=== PATIENT | male | born 1940 | race Caucasian/White ===

== ENCOUNTER 2016-11-25 06:30 | Inpatient (IN) | payer MEDICARE, OTHER ==
[2016-11-25] MEDS ORDERED: Albuterol/Ipratropium 3.0-0.5 MG/3 ML Neb Soln NEB ONE (06:58)
[2016-11-25] MEDS ORDERED: Sodium Chloride 0.9% 10 ML Syringe FLUSH PRN ×2 (07:19→11:27)
[2016-11-25] MEDS ORDERED: Furosemide 40 MG/4 ML VIAL IVPUSH ONE (07:21)
--- NOTE | 2016-11-25 07:27 | EDM.PDOC ---
ED HISTORY OF PRESENT ILLNESS - General Chief Complaint: Respiratory Problem Stated Complaint: COPD Time Seen by Provider: 11/25/16 07:22 Source: Reports: Patient History Limitations: Reports: No limitations - History of Present Illness INITIAL COMMENTS - FREE TEXT/NARRATIVE: increased sob. Pt has been coughing for about 1 week. He is raising colord bloody sputum. Timing/Duration: Reports: Day(s):, Getting worse, Other (pt uses o2 at home-- 2.5 liters) Severity: moderate Location, General: Reports: chest Associated Symptoms: Reports: cough, loss of appetite, shortness of breath - Related Data Allergies/ADRs: Allergies Allergy/AdvReac Type Severity Reaction Status Date / Time adhesive Allergy Rash Verified 11/25/16 06:39 meperidine HCl [From Demerol] Allergy Hallucinati Verified 11/25/16 06:39 ons Home Meds: Home Meds Aspirin [Adult Low Dose Aspirin EC] 81 mg PO DAILY 04/30/14 [History] Carvedilol [Coreg] 1 tab PO BID 04/30/14 [History] Furosemide [Lasix] 20 mg PO DAILY 04/30/14 [History] Gabapentin [Neurontin] 1 tab PO TID 04/30/14 [History] Gluc/[facility]sm#1/Vit C/James/Bor [Cvs Jfnnclpynio-Oxmekv-SBU] 1 tab PO BID [History] Methadone HCl [Methadone HCl] 3 tab PO TID 04/30/14 [History] Multivitamin [Multi Vitamin Daily] 1 tab PO DAILY 04/30/14 [History] Omeprazole 1 tab PO DAILY 04/30/14 [History] Pyridoxine HCl [Vitamin B-6] 200 mg PO BID 04/30/14 [History] Warfarin [Coumadin] 2 mg PO ASDIRECTED 04/30/14 [History] cloNIDine [cloNIDine] 1 patch TOP ASDIRECTED 04/30/14 [History] Albuterol [Proventil Neb Soln] 11/25/16 [History] Albuterol/Ipratropium [DuoNeb 3.0-0.5 MG/3 ML] 11/25/16 [History] atorvaSTATin [Lipitor] 11/25/16 [History] Past Medical History Cardiovascular History: Reports: Afib, Blood clots/VTE/DVT, High cholesterol, Hypertension, Pacemaker, SOB on exertion Respiratory History: Reports: COPD Gastrointestinal History: Reports: Hiatal hernia Musculoskeletal History: Reports: Back pain, chronic Psychiatric History: Reports: Addiction, Anxiety Endocrine/Metabolic History: Reports: Obesity/BMI 30+ - Past Surgical History Neurological Surgical History: Reports: Lumbar spine Musculoskeletal Surgical History: Reports: Knee replacement Social & Family History - Tobacco Use Smoking Status *Q: Former Smoker Years of Tobacco use: 60 Used Tobacco, but Quit: No Second Hand Smoke Exposure: No - Caffeine Use Caffeine Use: Reports: Soda - Alcohol Use Days Per Week of Alcohol Use: 0 - Recreational Drug Use Recreational Drug Use: No ED ROS GENERAL - Review of Systems Review Of Systems: See Below Constitutional: Reports: fever, chills, malaise, diaphoresis HEENT: Reports: No symptoms Respiratory: Reports: Shortness of Breath, Wheezing, Cough Cardiovascular: Reports: Edema, Other ( increased sob) Endocrine: Reports: no symptoms GI/Abdominal: Reports: No symptoms : Reports: no symptoms Musculoskeletal: Reports: no symptoms Skin: Reports: no symptoms Neurological: Reports: No Symptoms Psychiatric: Reports: No symptoms ED EXAM, GENERAL - Physical Exam Exam: See Below Free Text/Narrative:: pt arrived with increased sob and difficulty resting. He does use o2 at home-- 2.5 liters. He has a fever and purulent looking sputum. Exam Limited By: No limitations General Appearance: alert, anxious Ears: normal TMs Nose: normal inspection Throat/Mouth: Normal inspection Head: atraumatic Neck: normal inspection Respiratory/Chest: decreased breath sounds, wheezing Cardiovascular: regular rate, rhythm GI/Abdominal: soft, non tender (Male) Exam: Deferred Rectal (Males) Exam: Deferred Back Exam: normal inspection Extremities: pedal edema, other ( pluse 3 pitting edema. ) Neurological: alert, oriented, normal cognition Course - Vital Signs Last Recorded V/S: Last Vital Signs Temp 38.2 C H 11/25/16 06:35 Pulse 88 11/25/16 08:36 Resp 17 11/25/16 08:36 BP 148/84 H 11/25/16 08:36 Pulse Ox 92 L 11/25/16 08:36 - Orders/Labs/Meds Orders: Active Orders 24 hr Category Date Time Status EKG Documentation Completion [RC] ASDIRECTED Care 11/25/16 07:29 Active RT Aerosol Therapy [RC] ASDIRECTED Care 11/25/16 06:58 Active Chest 1V Frontal [CR] Stat Exams 11/25/16 06:56 Taken CULTURE BLOOD [BC] Urgent Lab 11/25/16 06:15 Received CULTURE BLOOD [BC] Urgent Lab 11/25/16 07:35 Received CULTURE RESPIRATORY + SMEAR [RM] Stat Lab 11/25/16 08:03 Results Sodium Chloride 0.9% [Saline Flush] Med 11/25/16 07:19 Active 10 ml FLUSH ASDIRECTED PRN Blood Culture x2 Reflex Set [OM.PC] Urgent Oth 11/25/16 07:28 Ordered Saline Lock Insert [OM.PC] Routine Oth 11/25/16 07:19 Ordered EKG 12 Lead [EK] Routine Ther 11/25/16 07:29 Ordered Medication Orders Sodium Chloride (Saline Flush) 10 ml FLUSH ASDIRECTED PRN PRN Reason: Keep Vein Open Last Admin: 11/25/16 07:39 Dose: 10 ml Labs: Laboratory Tests 11/25/16 11/25/16 11/25/16 Range/Units 06:57 06:59 06:59 WBC 8.5 (4.5-11.0) K/uL RBC 3.73 L (4.30-5.90) M/uL Hgb 11.9 L D (12.0-15.0) g/dL Hct 37.2 L (40.0-54.0) % MCV 100 H (80-98) fL MCH 32 H (27-31) pg MCHC 32 (32-36) % Plt Count 150 (150-400) K/uL Neut % (Auto) 84 H (36-66) % Lymph % (Auto) 4 L (24-44) % [place] % (Auto) 12 H (2-6) % Eos % (Auto) 1 L (2-4) % Baso % (Auto) 0 (0-1) % PT (9.5-12.0) sec INR (0.80-1.20) Puncture Site Lt radial ABG pH 7.424 (7.350-7.450) ABG pCO2 43.1 H (35.0-42.0) mmHg ABG pO2 57.4 L (75.0-100.0) mmHg ABG HCO3 27.7 H (22.0-26.0) mmol/L ABG Total CO2 25.0 (23.0-27.0) mmol/L ABG O2 Saturation 89.7 L (95.0-98.0) % ABG O2 Content 14.8 L (15.0-23.0) %vol ABG Base Excess 3.4 mm/L ABG Hemoglobin 12.0 L (13.5-18.0) g/dL ABG Oxyhemoglobin 88.1 % ABG Carboxyhemoglobin 1.2 (0.0-1.6) % ABG Methemoglobin 0.6 % Dagoberto Test Passed O2 Delivery Device Nasal cannula Oxygen Flow Rate 4 L Sodium 141 (140-148) mmol/L Potassium 3.8 (3.6-5.2) mmol/L Chloride 103 (100-108) mmol/L Carbon Dioxide 29 (21-32) mmol/L Anion Gap 9.3 (5.0-14.0) mmol/L BUN 15 (7-18) mg/dL Creatinine 1.2 (0.8-1.3) mg/dL Est Cr Clr Drug Dosing 57.48 mL/min Estimated GFR (MDRD) 59 L (>60) Glucose 184 H (74-106) mg/dL Calcium 8.0 L (8.5-10.1) mg/dL Total Bilirubin 0.9 D (0.2-1.0) mg/dL AST 46 H (15-37) U/L ALT 41 (12-78) U/L Alkaline Phosphatase 60 (46-116) U/L C-Reactive Protein (0.0-0.3) mg/dL Guw-E-Xtfoutygstq Pept (5-450) pg/mL Total Protein 6.5 (6.4-8.2) g/dL Albumin 2.8 L (3.4-5.0) g/dL Globulin 3.7 H (2.3-3.5) g/dL Albumin/Globulin Ratio 0.8 L (1.2-2.2) 11/25/16 11/25/16 11/25/16 Range/Units 06:59 06:59 07:29 WBC (4.5-11.0) K/uL RBC (4.30-5.90) M/uL Hgb (12.0-15.0) g/dL Hct (40.0-54.0) % MCV (80-98) fL MCH (27-31) pg MCHC (32-36) % Plt Count (150-400) K/uL Neut % (Auto) (36-66) % Lymph % (Auto) (24-44) % [place] % (Auto) (2-6) % Eos % (Auto) (2-4) % Baso % (Auto) (0-1) % PT 20.8 H (9.5-12.0) sec INR 1.92 H (0.80-1.20) Puncture Site ABG pH (7.350-7.450) ABG pCO2 (35.0-42.0) mmHg ABG pO2 (75.0-100.0) mmHg ABG HCO3 (22.0-26.0) mmol/L ABG Total CO2 (23.0-27.0) mmol/L ABG O2 Saturation (95.0-98.0) % ABG O2 Content (15.0-23.0) %vol ABG Base Excess mm/L ABG Hemoglobin (13.5-18.0) g/dL ABG Oxyhemoglobin % ABG Carboxyhemoglobin (0.0-1.6) % ABG Methemoglobin % Dagoberto Test O2 Delivery Device Oxygen Flow Rate L Sodium (140-148) mmol/L Potassium (3.6-5.2) mmol/L Chloride (100-108) mmol/L Carbon Dioxide (21-32) mmol/L Anion Gap (5.0-14.0) mmol/L BUN (7-18) mg/dL Creatinine (0.8-1.3) mg/dL Est Cr Clr Drug Dosing mL/min Estimated GFR (MDRD) (>60) Glucose (74-106) mg/dL Calcium (8.5-10.1) mg/dL Total Bilirubin (0.2-1.0) mg/dL AST (15-37) U/L ALT (12-78) U/L Alkaline Phosphatase (46-116) U/L C-Reactive Protein 3.32 H (0.0-0.3) mg/dL Uor-T-Zpfmqibysan Pept 2212 H (5-450) pg/mL Total Protein (6.4-8.2) g/dL Albumin (3.4-5.0) g/dL Globulin (2.3-3.5) g/dL Albumin/Globulin Ratio (1.2-2.2) Meds: Medications Generic Name Dose Route Start Last Admin Trade Name Robert PRN Reason Stop Dose Admin Sodium Chloride 10 ml 11/25/16 07:19 11/25/16 07:39 Saline Flush FLUSH 10 ml ASDIRECTED PRN Administration Keep Vein Open Discontinued Medications Generic Name Dose Route Start Last Admin Trade Name Robert PRN Reason Stop Dose Admin Albuterol/Ipratropium 3 ml 11/25/16 06:58 11/25/16 07:17 Duoneb 3.0-0.5 Mg/3 Ml NEB 11/25/16 06:59 3 ml ONETIME ONE Administration Furosemide 60 mg 11/25/16 07:21 11/25/16 07:39 Lasix IVPUSH 11/25/16 07:22 60 mg ONETIME ONE Administration - Re-Assessments/Exams Free Text/Narrative Re-Assessment/Exam: 11/25/16 09:53 pt arrived with o2 sats in the high 70.s He has been more sob for seversl days. He has a low grade temp. With nebs and he has diuresed 1000 cc. 11/25/16 09:54 [facility] [place] [facility], Departure - Departure Time of Disposition: 09:56 Disposition: Admitted As Inpatient 66 Condition: fair Clinical Impression: Pneumonia, Fluid overload, COPD (chronic obstructive pulmonary disease) Forms: ED Department Discharge Care Plan Goals: admit to Dr haji. - My Orders Last 24 Hours: My Active Orders 11/25/16 06:15 CULTURE BLOOD [BC] Urgent 11/25/16 07:19 Sodium Chloride 0.9% [Saline Flush] 10 ml FLUSH ASDIRECTED PRN Saline Lock Insert [OM.PC] Routine 11/25/16 07:28 Blood Culture x2 Reflex Set [OM.PC] Urgent 11/25/16 07:29 EKG Documentation Completion [RC] ASDIRECTED EKG 12 Lead [EK] Routine 11/25/16 07:35 CULTURE BLOOD [BC] Urgent 11/25/16 08:03 CULTURE RESPIRATORY + SMEAR [RM] Stat - Assessment/Plan Last 24 Hours: My Active Orders 11/25/16 06:15 CULTURE BLOOD [BC] Urgent 11/25/16 07:19 Sodium Chloride 0.9% [Saline Flush] 10 ml FLUSH ASDIRECTED PRN Saline Lock Insert [OM.PC] Routine 11/25/16 07:28 Blood Culture x2 Reflex Set [OM.PC] Urgent 11/25/16 07:29 EKG Documentation Completion [RC] ASDIRECTED EKG 12 Lead [EK] Routine 11/25/16 07:35 CULTURE BLOOD [BC] Urgent 11/25/16 08:03 CULTURE RESPIRATORY + SMEAR [RM] Stat
--- NOTE | 2016-11-25 10:28 | CR ---
Chest 1V Frontal INDICATION: SOB FINDINGS: Comparison 04/30/2014. Patient motion degrades image quality. Left-sided pacemaker in place . Suggestion of a new small infiltrate in the right mid and lower lung, suspicious for pneumonia. Cl inically correlate.
--- NOTE | 2016-11-25 10:47 | PCM.HP ---
H&P History of Present Illness - General Date of Service: 11/25/16 Admit Problem/Dx: Admission Diagnosis/Problem Admission Diagnosis/Problem Pneumonia Source of Information: Patient, Family, Provider, RN notes reviewed History Limitations: Reports: No limitations - History of Present Illness Initial Comments - Free Text/Narative: Mr. Donald is a 76-year-old gentleman who is admitted through the emergency department with hypoxia secondary to COPD exacerbation and right lung pneumonia. He has a known history of cardiac disease and is status post permanent pacemaker placement. Recently had evaluation with the [facility] in [place], apparently based on evaluation they did not feel that he was having significant cardiac dysfunction causing his progressive shortness of breath. He is felt to have COPD but is not completed formal evaluation, and this appointment is pending at the [facility] in December. Over the past years had progressive increasing shortness of breath, he does use oxygen at night but not during the day. Over the past 3 days his had progressive increasing shortness of breath to the point where he becomes very short of breath with minimal exertion. During that period time is also developed a cough productive of colored sputum. He denies any symptoms of chest pain or pressure and has not had significant temperature elevation. White blood cell count is modestly elevated, chest x-ray shows evidence of a right lung infiltrate. rib/ back pain Pain Score (Numeric/FACES): 7 - Related Data Allergies/Adverse Reactions: Allergies Allergy/AdvReac Type Severity Reaction Status Date / Time adhesive Allergy Rash Verified 11/25/16 06:39 meperidine HCl [From Demerol] Allergy Hallucinati Verified 11/25/16 06:39 ons Home Medications: Home Meds Aspirin [Adult Low Dose Aspirin EC] 81 mg PO DAILY 04/30/14 [History] Carvedilol [Coreg] 1 tab PO BID 04/30/14 [History] Furosemide [Lasix] 20 mg PO DAILY 04/30/14 [History] Gabapentin [Neurontin] 1 tab PO TID 04/30/14 [History] Gluc/[facility]sm#1/Vit C/James/Bor [Cvs Jgvhmpvdhau-Bqvyjt-MSK] 1 tab PO BID [History] Methadone HCl [Methadone HCl] 3 tab PO TID 04/30/14 [History] Multivitamin [Multi Vitamin Daily] 1 tab PO DAILY 08/24/14 [History] Omeprazole 1 tab PO DAILY 04/30/14 [History] Pyridoxine HCl [Vitamin B-6] 200 mg PO BID 04/30/14 [History] Warfarin [Coumadin] 2 mg PO ASDIRECTED 04/30/14 [History] cloNIDine [cloNIDine] 1 patch TOP ASDIRECTED 04/30/14 [History] Albuterol [Proventil Neb Soln] 11/25/16 [History] Albuterol/Ipratropium [DuoNeb 3.0-0.5 MG/3 ML] 11/25/16 [History] atorvaSTATin [Lipitor] 11/25/16 [History] Past Medical History Cardiovascular History: Reports: Afib, Blood clots/VTE/DVT, High cholesterol, Hypertension, Pacemaker, SOB on exertion Respiratory History: Reports: COPD Gastrointestinal History: Reports: Hiatal hernia Musculoskeletal History: Reports: Back pain, chronic Psychiatric History: Reports: Addiction, Anxiety Endocrine/Metabolic History: Reports: Obesity/BMI 30+ - Past Surgical History Neurological Surgical History: Reports: Lumbar spine Musculoskeletal Surgical History: Reports: Knee replacement Social & Family History - Tobacco Use Smoking Status *Q: Former Smoker Years of Tobacco use: 60 Used Tobacco, but Quit: No Second Hand Smoke Exposure: No - Caffeine Use Caffeine Use: Reports: Soda - Alcohol Use Days Per Week of Alcohol Use: 0 - Recreational Drug Use Recreational Drug Use: No H&P Review of Systems - Review of Systems: Review Of Systems: See Below General: Reports: weakness. Denies: fever, chills HEENT: Reports: headaches (Temporal). Denies: dysphasia, sinus congestion, sore throat, visual changes Pulmonary: Reports: Shortness of Breath, Wheezing, Cough, Sputum. Denies: Pleuritic Chest Pain, Hemoptysis Cardiovascular: Reports: dyspnea on exertion, edema. Denies: chest pain, palpitations, orthopnea, PND, lightheadedness, syncope Gastrointestinal: Reports: Abdominal pain. Denies: Anorexia, Constipation, Diarrhea, Decreased appetite, Difficulty swallowing, Nausea, Vomiting Genitourinary: Reports: no symptoms Musculoskeletal: Reports: back pain Skin: Reports: no symptoms Psychiatric: Reports: no symptoms Neurological: Reports: No Symptoms Hematologic/Lymphatic: Reports: no symptoms Immunologic: Reports: no symptoms Exam - Exam Exam: See Below - Vital Signs Vital Signs: Last Vital Signs Temp 100.8 F H 11/25/16 06:35 Pulse 88 11/25/16 08:36 Resp 17 11/25/16 08:36 BP 148/84 H 11/25/16 08:36 Pulse Ox 92 L 11/25/16 08:36 Weight: 270 lb - Exam Quality Assessment: supplemental oxygen, DVT prophylaxis General: alert, oriented, cooperative, mild distress HEENT: Conjunctiva clear, Hearing intact, Mucosa moist & pink, Nares patent, Normal nasal septum, Posterior pharynx clear, Pupils equal, Pupils reactive Neck: supple, trachea midline, +2 carotid pulse wo bruit Lungs: Decreased breath sounds, Rhonchi, Wheezing. No: Crackles, Rales, Rub, Stridor Cardiovascular: regular rate, regular rhythm, normal S1, normal S2. No: irregular rhythm, bradycardia, tachycardia, systolic murmur, diastolic murmur Abdomen: normal bowel sounds, soft, tenderness, other (Ventral hernia). No: organomegaly, peritoneal signs, distention, guarding, rigidity, rebound Back Exam: decreased range of motion, vertebral tenderness Extremities: 3, normal inspection, 10 Skin: warm, dry, intact Neurological: cranial nerves intact, strength equal bilateral, normal speech, normal tone, sensation intact. No: focal deficit Neuro Extensive - Mental Status: alert, oriented x3, normal mood/affect, normal cognition, memory intact - Patient Data Lab Results last 24 hrs: Laboratory Results - last 24 hr 11/25/16 11/25/16 11/25/16 Range/Units 06:57 06:59 06:59 WBC 8.5 (4.5-11.0) K/uL RBC 3.73 L (4.30-5.90) M/uL Hgb 11.9 L D (12.0-15.0) g/dL Hct 37.2 L (40.0-54.0) % MCV 100 H (80-98) fL MCH 32 H (27-31) pg MCHC 32 (32-36) % Plt Count 150 (150-400) K/uL Neut % (Auto) 84 H (36-66) % Lymph % (Auto) 4 L (24-44) % [place] % (Auto) 12 H (2-6) % Eos % (Auto) 1 L (2-4) % Baso % (Auto) 0 (0-1) % PT (9.5-12.0) sec INR (0.80-1.20) Puncture Site Lt radial ABG pH 7.424 (7.350-7.450) ABG pCO2 43.1 H (35.0-42.0) mmHg ABG pO2 57.4 L (75.0-100.0) mmHg ABG HCO3 27.7 H (22.0-26.0) mmol/L ABG Total CO2 25.0 (23.0-27.0) mmol/L ABG O2 Saturation 89.7 L (95.0-98.0) % ABG O2 Content 14.8 L (15.0-23.0) %vol ABG Base Excess 3.4 mm/L ABG Hemoglobin 12.0 L (13.5-18.0) g/dL ABG Oxyhemoglobin 88.1 % ABG Carboxyhemoglobin 1.2 (0.0-1.6) % ABG Methemoglobin 0.6 % Dagoberto Test Passed O2 Delivery Device Nasal cannula Oxygen Flow Rate 4 L Sodium 141 (140-148) mmol/L Potassium 3.8 (3.6-5.2) mmol/L Chloride 103 (100-108) mmol/L Carbon Dioxide 29 (21-32) mmol/L Anion Gap 9.3 (5.0-14.0) mmol/L BUN 15 (7-18) mg/dL Creatinine 1.2 (0.8-1.3) mg/dL Est Cr Clr Drug Dosing 57.48 mL/min Estimated GFR (MDRD) 59 L (>60) Glucose 184 H (74-106) mg/dL Calcium 8.0 L (8.5-10.1) mg/dL Total Bilirubin 0.9 D (0.2-1.0) mg/dL AST 46 H (15-37) U/L ALT 41 (12-78) U/L Alkaline Phosphatase 60 (46-116) U/L C-Reactive Protein (0.0-0.3) mg/dL [id number] Pept (5-450) pg/mL Total Protein 6.5 (6.4-8.2) g/dL Albumin 2.8 L (3.4-5.0) g/dL Globulin 3.7 H (2.3-3.5) g/dL Albumin/Globulin Ratio 0.8 L (1.2-2.2) 11/25/16 11/25/16 11/25/16 Range/Units 06:59 06:59 07:29 WBC (4.5-11.0) K/uL RBC (4.30-5.90) M/uL Hgb (12.0-15.0) g/dL Hct (40.0-54.0) % MCV (80-98) fL MCH (27-31) pg MCHC (32-36) % Plt Count (150-400) K/uL Neut % (Auto) (36-66) % Lymph % (Auto) (24-44) % [place] % (Auto) (2-6) % Eos % (Auto) (2-4) % Baso % (Auto) (0-1) % PT 20.8 H (9.5-12.0) sec INR 1.92 H (0.80-1.20) Puncture Site ABG pH (7.350-7.450) ABG pCO2 (35.0-42.0) mmHg ABG pO2 (75.0-100.0) mmHg ABG HCO3 (22.0-26.0) mmol/L ABG Total CO2 (23.0-27.0) mmol/L ABG O2 Saturation (95.0-98.0) % ABG O2 Content (15.0-23.0) %vol ABG Base Excess mm/L ABG Hemoglobin (13.5-18.0) g/dL ABG Oxyhemoglobin % ABG Carboxyhemoglobin (0.0-1.6) % ABG Methemoglobin % Dagoberto Test O2 Delivery Device Oxygen Flow Rate L Sodium (140-148) mmol/L Potassium (3.6-5.2) mmol/L Chloride (100-108) mmol/L Carbon Dioxide (21-32) mmol/L Anion Gap (5.0-14.0) mmol/L BUN (7-18) mg/dL Creatinine (0.8-1.3) mg/dL Est Cr Clr Drug Dosing mL/min Estimated GFR (MDRD) (>60) Glucose (74-106) mg/dL Calcium (8.5-10.1) mg/dL Total Bilirubin (0.2-1.0) mg/dL AST (15-37) U/L ALT (12-78) U/L Alkaline Phosphatase (46-116) U/L C-Reactive Protein 3.32 H (0.0-0.3) mg/dL Foq-[id number]-Pdlncgddvko Pept 2212 H (5-450) pg/mL Total Protein (6.4-8.2) g/dL Albumin (3.4-5.0) g/dL Globulin (2.3-3.5) g/dL Albumin/Globulin Ratio (1.2-2.2) Result Diagrams: 11/25/16 06:59 11/25/16 06:59 Cory Results last 24 hrs: Microbiology 11/25/16 08:03 Gram Stain - Final Sputum - Expectorated *Q Meaningful Use (ADM) - VTE *Q VTE Criteria *Q: VTE Pharmacological Contraindications *Q: High INR Value - VTE Risk Assess *Q Each Risk Factor Represents 1 Point: Swollen Legs, Current, Obesity (BMI greater than 30), Abnormal Pulmonary Function (COPD) Total Score 1 Point Risk Factors: 3 Each Risk Factor Represents 2 Points: None Total Score 2 Point Risk Factors: 0 Each Risk Factor Represents 3 Points: Age 75 Years or Greater Total Score 3 Point Risk Factors: 3 Each Risk Factor Represents 5 Points: None Total Score 5 Point Risk Factors: 0 Venous Thromboembolism Risk Factor Score *Q: 6 - Stroke *Q Stroke Criteria *Q: - AMI *Q AMI Criteria *Q: Problem List Initiated/Reviewed/Updated: Yes Orders Last 24hrs: Active Orders 24 hr Category Date Time Status Patient Status Manage Transfer [TRANSFER] Routine ADT 11/25/16 10:29 Active EKG Documentation Completion [RC] ASDIRECTED Care 11/25/16 07:29 Active RT Aerosol Therapy [RC] ASDIRECTED Care 11/25/16 06:58 Active CULTURE BLOOD [BC] Urgent Lab 11/25/16 06:15 Received CULTURE BLOOD [BC] Urgent Lab 11/25/16 07:35 Received CULTURE RESPIRATORY + SMEAR [RM] Stat Lab 11/25/16 08:03 Results Azithromycin [Zithromax] 500 mg Med 11/25/16 10:45 Ordered Sodium Chloride 0.9% [Normal Saline] 250 ml IV Q24H Sodium Chloride 0.9% [Saline Flush] Med 11/25/16 07:19 Active 10 ml FLUSH ASDIRECTED PRN cefTRIAXone [Rocephin] 1 gm Med 11/25/16 10:45 Ordered Sodium Chloride 0.9% [Normal Saline] 50 ml IV Q24H methylPREDNISolone Sod Succ [Solu-MEDROL] Med 11/25/16 10:45 Ordered 40 mg IVPUSH Q6H Blood Culture x2 Reflex Set [OM.PC] Urgent Oth 11/25/16 07:28 Ordered Saline Lock Insert [OM.PC] Routine Oth 11/25/16 07:19 Ordered Resuscitation Status Routine Resus Stat 11/25/16 10:34 Ordered EKG 12 Lead [EK] Routine Ther 11/25/16 07:29 Ordered Medication Orders Azithromycin 500 mg/ Sodium (Chloride) 250 mls @ 250 mls/hr IV Q24H KAVITA Ceftriaxone Sodium 1 gm/ (Sodium Chloride) 50 mls @ 100 mls/hr IV Q24H KAVITA Methylprednisolone Sodium Succinate (Solu-Medrol) 40 mg IVPUSH Q6H KAVITA Sodium Chloride (Saline Flush) 10 ml FLUSH ASDIRECTED PRN PRN Reason: Keep Vein Open Last Admin: 11/25/16 07:39 Dose: 10 ml Assessment/Plan Comment:: ASSESSMENT AND PLAN RIGHT LUNG PNEUMONIA-community acquired, no recent history of steroid use or antibiotics. -Blood and sputum cultures pending -IV Rocephin and azithromycin pending culture results COPD EXACERBATION-he's not had formally documented diagnosis of COPD but by history and recent evaluation this is very highly likely. -Supplemental oxygen as needed -Nebulizer therapy with albuterol and duo nebs -Solu-Medrol 40 mg IV every 6 hours ACUTE ON CHRONIC HYPOXIC RESPIRATORY FAILURE-his required increased supplemental oxygen and has documented hypoxia on initial evaluation. -Management of pneumonia and COPD exacerbation as above TEMPORAL HEADACHES-reports a recent history of severe bilateral temporal headaches, denies any visual changes -Sedimentation rate to evaluate for temporal arteritis -Consider surgical consult for temporal artery biopsy EPIGASTRIC ABDOMINAL PAIN-he developed severe right upper quadrant and epigastric pain following eating. Symptoms include bloating and nausea. Differential includes possible ulcer disease or cysts gastritis duodenitis versus cholecystitis. -Protonix 40 mg by mouth twice a day -When stable from a respiratory status consider further evaluation including EGD and right upper quadrant ultrasound CHRONIC KIDNEY DISEASE STAGE III -Closely monitor urine output and renal function during hospital stay MAINTENANCE ISSUES -DVT prophylaxis; current therapy with warfarin should provide adequate DVT prophylaxis -GI prophylaxis; Protonix as above -Keith catheter; not indicated -Nutrition; 2 g sodium diet -Nicotine dependence; not required CODE STATUS-FULL CODE ADMISSION STATUS-patient will be admitted to inpatient status, expect at least a 2 night hospital stay for evaluation and management of problems as outlined above. At the time of this admission I do not reasonably expected evaluation and management of this problem will require more than a 96 hour hospital stay. DISPOSITION-anticipate discharge to home after the hospital stay. PRIMARY CARE PROVIDER-Dr. Navarro
[2016-11-25] MEDS ORDERED: Acetaminophen 325 MG Tab PO ONE (11:21)
[2016-11-25] MEDS ORDERED: Albuterol 0.083% 2.5 MG/3 ML Neb Soln NEB PRN (11:27)
[2016-11-25] MEDS ORDERED: Polyethylene Glycol 3350 Powder 17 GM Packet PO PRN (11:27)
[2016-11-25] MEDS ORDERED: Magnesium Hydroxide 400 MG/5 ML Susp 30 ML Cup PO PRN (11:27)
[2016-11-25] MEDS ORDERED: Ondansetron 4 MG/2 ML SDV IV PRN (11:27)
[2016-11-25] MEDS: Gabapentin 100 MG Cap PO SCH ×2 (13:28→20:25)
[2016-11-25] MEDS: Methadone 10 MG Tab PO SCH ×2 (13:32→20:25)
[2016-11-25] MEDS: methylPREDNISolone Sodium Succinate 40 MG/1 ML SDV IVPUSH SCH ×3 (13:33→23:03)
[2016-11-25] MEDS: cefTRIAXone 1 GM in Sodium Chloride 0.9% 50 ML IV SCH (13:34)
[2016-11-25] MEDS: [UNRECOGNIZED DRUG - REMARK] TOP SCH (14:14)
[2016-11-25] MEDS: Albuterol/Ipratropium 3.0-0.5 MG/3 ML Neb Soln NEB SCH ×2 (14:39→20:25)
[2016-11-25] MEDS: Azithromycin 500 MG in Sodium Chloride 0.9% 250 ML IV SCH (14:43)
[2016-11-25] MEDS: Warfarin 3 MG Tab PO SCH (14:44)
[2016-11-25] MEDS: Docusate Sodium 100 MG Cap PO PRN (15:09)
[2016-11-25] MEDS: Acetaminophen 325 MG Tab PO PRN (15:30)
[2016-11-25] MEDS: Pantoprazole 40 MG Tab.CR PO SCH (16:31)
[2016-11-25] MEDS: Vitamin B6-pyridOXINE 50 MG Tab PO SCH (20:25)
[2016-11-25] MEDS: Carvedilol 25 MG Tab PO SCH (20:25)
[2016-11-25] MEDS: Mineral Oil/White Petrolatum Crm 113 GM Jar TOP SCH (20:29)
[2016-11-25] MEDS: [UNRECOGNIZED DRUG - OTHER] PO SCH (20:34)
[2016-11-26] MEDS: methylPREDNISolone Sodium Succinate 40 MG/1 ML SDV IVPUSH SCH ×4 (05:22→23:47)
[2016-11-26] MEDS: Albuterol/Ipratropium 3.0-0.5 MG/3 ML Neb Soln NEB SCH ×4 (07:07→21:17)
[2016-11-26] MEDS: Mineral Oil/White Petrolatum Crm 113 GM Jar TOP SCH (07:40)
[2016-11-26] MEDS: Pantoprazole 40 MG Tab.CR PO SCH ×2 (07:48→16:07)
[2016-11-26] MEDS ORDERED: Furosemide 40 MG/4 ML VIAL IVPUSH ONE (08:00)
[2016-11-26] MEDS: Docusate Sodium 100 MG Cap PO PRN (08:01)
[2016-11-26] MEDS: Methadone 10 MG Tab PO SCH ×3 (08:01→21:17)
[2016-11-26] MEDS: Gabapentin 100 MG Cap PO SCH ×3 (08:01→21:18)
[2016-11-26] MEDS: Polyethylene Glycol 3350 Powder 17 GM Packet PO SCH (08:01)
[2016-11-26] MEDS: Carvedilol 25 MG Tab PO SCH ×2 (08:03→21:20)
[2016-11-26] MEDS: atorvaSTATin 20 MG Tab PO SCH (08:03)
[2016-11-26] MEDS: Aspirin 81 MG Tab.EC PO SCH (08:03)
[2016-11-26] MEDS: [UNRECOGNIZED DRUG - OTHER] PO SCH ×2 (08:06→21:18)
[2016-11-26] MEDS: Fluticasone Propionate Nasal Spray 16 GM Bottle NASBOTH SCH (08:06)
[2016-11-26] MEDS: Vitamin B6-pyridOXINE 50 MG Tab PO SCH ×2 (08:06→21:18)
[2016-11-26] MEDS ORDERED: cloNIDine 0.1 MG/Day Transdermal Patch TOP SCH (09:00)
[2016-11-26] MEDS ORDERED: Non-Formulary Medication 1 Each (Atorvastatin [Lipitor] 40 MG) PO SCH (09:00)
--- NOTE | 2016-11-26 09:07 | PCM.PN ---
- General Info Date of Service: 11/26/16 Functional Status: Reports: pain controlled, tolerating diet, urinating - Review of Systems General: Reports: Weakness. Denies: Fever, Chills Pulmonary: Reports: shortness of breath, cough, wheezing. Denies: pleuritic chest pain, sputum, hemoptysis Cardiovascular: Reports: Dyspnea on Exertion. Denies: Chest Pain, Palpitations , Orthopnea, PND, Edema Gastrointestinal: Reports: No symptoms Systems Review Comment:: This patient has done relatively well since admission, bilateral temporal headache is improved and his sedimentation rate was normal. Breathing seems to be somewhat better although he still notes shortness of breath with activity and exertion. Vital signs have been stable and he has remained afebrile. - Patient Data Vitals - most recent: Last Vital Signs Temp 97.3 F 11/26/16 07:00 Pulse 76 11/26/16 08:03 Resp 22 H 11/26/16 07:00 BP 167/95 H 11/26/16 08:03 Pulse Ox 96 11/26/16 07:00 Weight - most recent: 264 lb 14.4 oz I&O - last 24 hours: Intake & Output 11/25/16 11/26/16 11/26/16 22:59 06:59 14:59 Output Total 150 325 200 Balance -150 -325 -200 Lab Results last 24 hrs: Laboratory Results - last 24 hr 11/26/16 11/26/16 11/26/16 Range/Units 05:57 05:57 05:57 WBC 10.6 (4.5-11.0) K/uL RBC 4.10 L (4.30-5.90) M/uL Hgb 13.1 (12.0-15.0) g/dL Hct 39.8 L (40.0-54.0) % MCV 97 (80-98) fL MCH 32 H (27-31) pg MCHC 33 (32-36) % Plt Count 150 (150-400) K/uL Neut % (Auto) 92 H (36-66) % Lymph % (Auto) 5 L (24-44) % [place] % (Auto) 3 (2-6) % Eos % (Auto) 0 L (2-4) % Baso % (Auto) 0 (0-1) % PT 29.0 H (9.5-12.0) sec INR 2.65 H (0.80-1.20) Sodium 142 (140-148) mmol/L Potassium 4.3 (3.6-5.2) mmol/L Chloride 103 (100-108) mmol/L Carbon Dioxide 33 H (21-32) mmol/L Anion Gap 10.3 (5.0-14.0) mmol/L BUN 16 (7-18) mg/dL Creatinine 1.0 (0.8-1.3) mg/dL Est Cr Clr Drug Dosing 68.98 mL/min Estimated GFR (MDRD) > 60 (>60) Glucose 149 H (74-106) mg/dL Calcium 8.4 L (8.5-10.1) mg/dL Magnesium 1.8 (1.8-2.4) mg/dL Med Orders - Current: Current Medications Acetaminophen (Tylenol) 650 mg PO Q4H PRN PRN Reason: Pain (Mild 1-3)/fever Last Admin: 11/25/16 15:30 Dose: 650 mg Albuterol (Proventil Neb Soln) 2.5 mg NEB Q4H PRN PRN Reason: Shortness Of Breath/wheezing Albuterol/Ipratropium (Duoneb 3.0-0.5 Mg/3 Ml) 3 ml NEB QIDRT [facility] Last Admin: 11/26/16 07:07 Dose: 3 ml Aspirin (Halfprin) 81 mg PO DAILY [facility] Last Admin: 11/26/16 08:03 Dose: 81 mg Atorvastatin Calcium (Lipitor) 40 mg PO DAILY [facility] Last Admin: 11/26/16 08:03 Dose: 40 mg Carvedilol (Coreg) 25 mg PO BID [facility] Last Admin: 11/26/16 08:03 Dose: 25 mg Clonidine HCl (Catapres-Tts 1) 0.1 mg TOP Q7D [facility] Last Admin: 11/26/16 08:02 Dose: 0.1 mg Docusate Sodium (Colace) 100 mg PO BID PRN PRN Reason: Constipation Last Admin: 11/26/16 08:01 Dose: 100 mg Fluticasone Propionate (Flonase) 0 gm NASBOTH DAILY [facility] Last Admin: 11/26/16 08:06 Dose: Not Given Gabapentin (Neurontin) 100 mg PO TID [facility] Last Admin: 11/26/16 08:01 Dose: 100 mg Azithromycin 500 mg/ Sodium (Chloride) 250 mls @ 250 mls/hr IV Q24H [facility] Last Admin: 11/25/16 14:43 Dose: 250 mls/hr Ceftriaxone Sodium 1 gm/ (Sodium Chloride) 50 mls @ 100 mls/hr IV Q24H [facility] Last Admin: 11/25/16 13:34 Dose: 100 mls/hr Magnesium Hydroxide (Milk Of Magnesia) 30 ml PO Q12H PRN PRN Reason: Constipation Methadone HCl (Methadone) 30 mg PO TID [facility] Last Admin: 11/26/16 08:01 Dose: 30 mg Methylprednisolone Sodium Succinate (Solu-Medrol) 40 mg IVPUSH Q6H [facility] Last Admin: 11/26/16 05:22 Dose: 40 mg Mineral Oil/White Petrolatum (Hydrocerin Crm) 0 gm TOP ASDIRECTED [facility] Last Admin: 11/26/16 07:40 Dose: 1 applic (Gluc/[facility]-Msm#1/Vit C/James/Bor [[facility] Glucosamine-Chondr- Ms 1 tab PO BID [facility] Last Admin: 11/26/16 08:06 Dose: Not Given Verify Clonidine (Patch) 0 each TOP DAILY [facility] Last Admin: 11/25/16 14:14 Dose: 1 each Ondansetron HCl (Zofran) 4 mg IV Q4H PRN PRN Reason: Nausea/Vomiting Pantoprazole Sodium (Protonix) 40 mg PO BIDAC [facility] Last Admin: 11/26/16 07:48 Dose: 40 mg Polyethylene Glycol (Miralax) 17 gm PO DAILY PRN PRN Reason: Constipation Last Admin: 11/25/16 15:09 Dose: 17 gm Polyethylene Glycol (Miralax) 17 gm PO DAILY [facility] Last Admin: 11/26/16 08:01 Dose: 17 gm Pyridoxine HCl (Vitamin B6-Pyridoxine) 200 mg PO BID [facility] Last Admin: 11/26/16 08:06 Dose: Not Given Sodium Chloride (Saline Flush) 10 ml FLUSH ASDIRECTED PRN PRN Reason: Keep Vein Open Warfarin Sodium (Coumadin) 3 mg PO DAILY@1300 [facility] Last Admin: 11/25/16 14:44 Dose: 3 mg Discontinued Medications Acetaminophen (Tylenol) 650 mg PO NOW ONE Stop: 11/25/16 11:22 Last Admin: 11/25/16 13:27 Dose: 650 mg Albuterol/Ipratropium (Duoneb 3.0-0.5 Mg/3 Ml) 3 ml NEB ONETIME ONE Stop: 11/25/16 06:59 Last Admin: 11/25/16 07:17 Dose: 3 ml Furosemide (Lasix) 60 mg IVPUSH ONETIME ONE Stop: 11/25/16 07:22 Last Admin: 11/25/16 07:39 Dose: 60 mg Furosemide (Lasix) 40 mg IVPUSH NOW ONE Stop: 11/26/16 08:01 Last Admin: 11/26/16 07:50 Dose: 40 mg Sodium Chloride (Saline Flush) 10 ml FLUSH ASDIRECTED PRN PRN Reason: Keep Vein Open Last Admin: 11/25/16 07:39 Dose: 10 ml - Exam Quality Assessment: supplemental oxygen, DVT prophylaxis General: alert, oriented, cooperative, mild distress Lungs: Decreased breath sounds, Rhonchi, Wheezing. No: Crackles, Rales, Rub, Stridor Cardiovascular: Regular Rate, Regular Rhythm, No Murmurs Abdomen: bowel sounds present, soft, no tenderness, no distension Extremities: no edema Skin: warm, dry, intact - Problem List Review Problem List Initiated/Reviewed/Updated: Yes - My Orders Last 24 Hours: My Active Orders 11/25/16 10:34 Resuscitation Status Routine 11/25/16 11:00 cefTRIAXone [Rocephin] 1 gm Sodium Chloride 0.9% [Normal Saline] 50 ml IV Q24H methylPREDNISolone Sod Succ [Solu-MEDROL] 40 mg IVPUSH Q6H 11/25/16 11:27 Patient Status [ADT] Routine Intake and Output [RC] QSHIFT Notify Provider Vital Signs [RC] ASDIRECTED Oxygen Therapy [RC] Q12H RT Aerosol Therapy [RC] ASDIRECTED Up With Assistance [RC] ASDIRECTED VTE/DVT Education [RC] Per Unit Routine Vital Signs [RC] Q4H Acetaminophen [Tylenol] 650 mg PO Q4H PRN Albuterol [Proventil Neb Soln] 2.5 mg NEB Q4H PRN Docusate Sodium [Colace] 100 mg PO BID PRN Magnesium Hydroxide [Milk of Magnesia] 30 ml PO Q12H PRN Ondansetron [Zofran] 4 mg IV Q4H PRN Polyethylene Glycol 3350 [MiraLAX] 17 gm PO DAILY PRN Sodium Chloride 0.9% [Saline Flush] 10 ml FLUSH ASDIRECTED PRN Saline Lock Insert [OM.PC] Routine VTE Pharmacological Contraindications [AST] Per Unit Routine 11/25/16 12:00 Azithromycin [Zithromax] 500 mg Sodium Chloride 0.9% [Normal Saline] 250 ml IV Q24H 11/25/16 14:00 Non-Formulary Medication [NF Drug] 0 each TOP DAILY 11/25/16 15:00 Albuterol/Ipratropium [DuoNeb 3.0-0.5 MG/3 ML] 3 ml NEB QIDRT 11/25/16 16:30 Pantoprazole [Protonix] 40 mg PO BIDAC 11/25/16 17:00 Mineral Oil/Petrolatum,White [Hydrocerin Crm] 0 gm TOP ASDIRECTED 11/25/16 Lunch 2 Gram Sodium Diet [DIET] 11/26/16 09:00 Fluticasone Propionate [Flonase] 0 gm NASBOTH DAILY Polyethylene Glycol 3350 [MiraLAX] 17 gm PO DAILY atorvaSTATin [Lipitor] 40 mg PO DAILY 11/27/16 05:00 BASIC METABOLIC PANEL,BMP [CHEM] Timed CBC WITH AUTO DIFF [HEME] Timed INR,PT,PROTHROMBIN TIME [COAG] Timed MAGNESIUM [CHEM] Timed 11/27/16 08:00 Furosemide [Lasix] 40 mg IVPUSH NOW ONE - Plan Plan:: ASSESSMENT AND PLAN RIGHT LUNG PNEUMONIA-community acquired, no recent history of steroid use or antibiotics. -Blood and sputum cultures pending -IV Rocephin and azithromycin pending culture results COPD EXACERBATION-he's not had formally documented diagnosis of COPD but by history and recent evaluation this is very highly likely. Shortness of breath is improved with current management. -Supplemental oxygen as needed -Nebulizer therapy with albuterol and duo nebs -Solu-Medrol 40 mg IV every 6 hours ACUTE ON CHRONIC HYPOXIC RESPIRATORY FAILURE-his required increased supplemental oxygen and has documented hypoxia on initial evaluation. -Management of pneumonia and COPD exacerbation as above TEMPORAL HEADACHES-headaches improved, no temporal tenderness to palpation, sedimentation rate was normal EPIGASTRIC ABDOMINAL PAIN-he developed severe right upper quadrant and epigastric pain following eating. Symptoms include bloating and nausea. Differential includes possible ulcer disease or cysts gastritis duodenitis versus cholecystitis. -Protonix 40 mg by mouth twice a day -When stable from a respiratory status consider further evaluation including EGD and right upper quadrant ultrasound CHRONIC KIDNEY DISEASE STAGE III -Closely monitor urine output and renal function during hospital stay MAINTENANCE ISSUES -DVT prophylaxis; current therapy with warfarin should provide adequate DVT prophylaxis -GI prophylaxis; Protonix as above -Keith catheter; not indicated -Nutrition; 2 g sodium diet -Nicotine dependence; not required CODE STATUS-FULL CODE ADMISSION STATUS-patient will be admitted to inpatient status, expect at least a 2 night hospital stay for evaluation and management of problems as outlined above. At the time of this admission I do not reasonably expected evaluation and management of this problem will require more than a 96 hour hospital stay. DISPOSITION-anticipate discharge to home after the hospital stay. PRIMARY CARE PROVIDER-Dr. Navarro
[2016-11-26] MEDS: cefTRIAXone 1 GM in Sodium Chloride 0.9% 50 ML IV SCH (11:13)
[2016-11-26] MEDS: [UNRECOGNIZED DRUG - REMARK] TOP SCH (11:14)
[2016-11-26] MEDS: Azithromycin 500 MG in Sodium Chloride 0.9% 250 ML IV SCH (12:16)
[2016-11-26] MEDS: Warfarin 3 MG Tab PO SCH (12:42)
[2016-11-26] MEDS: Acetaminophen 325 MG Tab PO PRN (15:06)
[2016-11-27] MEDS: methylPREDNISolone Sodium Succinate 40 MG/1 ML SDV IVPUSH SCH ×3 (05:53→23:09)
[2016-11-27] MEDS: Albuterol/Ipratropium 3.0-0.5 MG/3 ML Neb Soln NEB SCH ×4 (07:47→21:26)
[2016-11-27] MEDS ORDERED: Furosemide 40 MG/4 ML VIAL IVPUSH ONE (08:00)
[2016-11-27] MEDS: Pantoprazole 40 MG Tab.CR PO SCH ×2 (08:19→17:55)
[2016-11-27] MEDS: Carvedilol 25 MG Tab PO SCH ×2 (08:20→21:20)
[2016-11-27] MEDS: Fluticasone Propionate Nasal Spray 16 GM Bottle NASBOTH SCH (08:21)
[2016-11-27] MEDS: [UNRECOGNIZED DRUG - OTHER] PO SCH ×2 (08:22→21:24)
[2016-11-27] MEDS: Gabapentin 100 MG Cap PO SCH ×3 (08:24→21:19)
[2016-11-27] MEDS: atorvaSTATin 20 MG Tab PO SCH (08:24)
[2016-11-27] MEDS: Polyethylene Glycol 3350 Powder 17 GM Packet PO SCH (08:24)
[2016-11-27] MEDS: Vitamin B6-pyridOXINE 50 MG Tab PO SCH ×2 (08:25→21:19)
[2016-11-27] MEDS: Methadone 10 MG Tab PO SCH ×3 (08:29→21:26)
[2016-11-27] MEDS: [UNRECOGNIZED DRUG - REMARK] TOP SCH (08:42)
[2016-11-27] MEDS ORDERED: Potassium Chloride 20 MEQ Tab.ER PO ONE (09:00)
[2016-11-27] MEDS: cefTRIAXone 1 GM in Sodium Chloride 0.9% 50 ML IV SCH (11:20)
[2016-11-27] MEDS: Aspirin 81 MG Tab.EC PO SCH (11:22)
[2016-11-27] MEDS: Azithromycin 500 MG in Sodium Chloride 0.9% 250 ML IV SCH (13:39)
[2016-11-27] MEDS ORDERED: Pneumococcal Polyvalent-23 Vaccine 0.5 ML SDV IM ONE (14:00)
--- NOTE | 2016-11-27 14:55 | PCM.PN ---
- General Info Date of Service: 11/27/16 Functional Status: Reports: tolerating diet, urinating - Review of Systems General: Reports: Weakness. Denies: Fever, Chills Pulmonary: Reports: shortness of breath, cough, sputum, wheezing. Denies: pleuritic chest pain, hemoptysis Cardiovascular: Reports: Dyspnea on Exertion. Denies: Chest Pain, Palpitations , Orthopnea, PND, Edema Gastrointestinal: Reports: Abdominal pain, Nausea. Denies: Constipation, Decreased appetite, Diarrhea, Difficulty swallowing, Vomiting Systems Review Comment:: This patient has been stable over the past 24 hours, respiratory status has improved modestly. Vital signs have been stable and he has remained afebrile. Continues to experience symptoms of some nausea and bloating following eating. - Patient Data Vitals - most recent: Last Vital Signs Temp 97.3 F 11/27/16 11:00 Pulse 77 11/27/16 11:00 Resp 18 11/27/16 11:00 BP 143/86 H 11/27/16 11:00 Pulse Ox 95 11/27/16 11:00 Weight - most recent: 264 lb 14.413 oz I&O - last 24 hours: Intake & Output 11/26/16 11/27/16 11/27/16 22:59 06:59 14:59 Intake Total 300 360 Output Total 119 193 3234 Balance -100 -200 -640 Lab Results last 24 hrs: Laboratory Results - last 24 hr 11/27/16 11/27/16 11/27/16 Range/Units 05:00 05:00 05:00 WBC 16.5 H (4.5-11.0) K/uL RBC 4.00 L (4.30-5.90) M/uL Hgb 13.2 (12.0-15.0) g/dL Hct 38.8 L (40.0-54.0) % MCV 97 (80-98) fL MCH 33 H (27-31) pg MCHC 34 (32-36) % Plt Count 174 (150-400) K/uL Neut % (Auto) 92 H (36-66) % Lymph % (Auto) 4 L (24-44) % [place] % (Auto) 5 (2-6) % Eos % (Auto) 0 L (2-4) % Baso % (Auto) 0 (0-1) % PT 44.1 H (9.5-12.0) sec INR 3.99 H (0.80-1.20) Sodium 144 (140-148) mmol/L Potassium 3.4 L (3.6-5.2) mmol/L Chloride 104 (100-108) mmol/L Carbon Dioxide 33 H (21-32) mmol/L Anion Gap 10.4 (5.0-14.0) mmol/L BUN 24 H (7-18) mg/dL Creatinine 1.0 (0.8-1.3) mg/dL Est Cr Clr Drug Dosing 69.07 mL/min Estimated GFR (MDRD) > 60 (>60) Glucose 133 H (74-106) mg/dL Calcium 8.1 L (8.5-10.1) mg/dL Magnesium 1.8 (1.8-2.4) mg/dL Med Orders - Current: Current Medications Acetaminophen (Tylenol) 650 mg PO Q4H PRN PRN Reason: Pain (Mild 1-3)/fever Last Admin: 11/26/16 15:06 Dose: 650 mg Albuterol (Proventil Neb Soln) 2.5 mg NEB Q4H PRN PRN Reason: Shortness Of Breath/wheezing Albuterol/Ipratropium (Duoneb 3.0-0.5 Mg/3 Ml) 3 ml NEB QIDRT [facility] Last Admin: 11/27/16 10:42 Dose: 3 ml Aspirin (Halfprin) 81 mg PO DAILY [facility] Last Admin: 11/27/16 11:22 Dose: 81 mg Atorvastatin Calcium (Lipitor) 40 mg PO DAILY [facility] Last Admin: 11/27/16 08:24 Dose: 40 mg Carvedilol (Coreg) 25 mg PO BID [facility] Last Admin: 11/27/16 08:20 Dose: 25 mg Clonidine HCl (Catapres-Tts 1) 0.1 mg TOP Q7D [facility] Last Admin: 11/26/16 08:02 Dose: 0.1 mg Docusate Sodium (Colace) 100 mg PO BID PRN PRN Reason: Constipation Last Admin: 11/26/16 08:01 Dose: 100 mg Fluticasone Propionate (Flonase) 0 gm NASBOTH DAILY [facility] Last Admin: 11/27/16 08:21 Dose: 2 sprays Gabapentin (Neurontin) 100 mg PO TID [facility] Last Admin: 03/23/17 13:40 Dose: 100 mg Azithromycin 500 mg/ Sodium (Chloride) 250 mls @ 250 mls/hr IV Q24H [facility] Last Admin: 11/27/16 13:39 Dose: 250 mls/hr Ceftriaxone Sodium 1 gm/ (Sodium Chloride) 50 mls @ 100 mls/hr IV Q24H [facility] Last Admin: 11/27/16 11:20 Dose: 100 mls/hr Magnesium Hydroxide (Milk Of Magnesia) 30 ml PO Q12H PRN PRN Reason: Constipation Methadone HCl (Methadone) 30 mg PO TID [facility] Last Admin: 11/27/16 13:39 Dose: 30 mg Methylprednisolone Sodium Succinate (Solu-Medrol) 40 mg IVPUSH Q12H [facility] Mineral Oil/White Petrolatum (Hydrocerin Crm) 0 gm TOP ASDIRECTED [facility] Last Admin: 11/26/16 07:40 Dose: 1 applic (Gluc/[facility]sm#1/Vit C/James/Bor [[facility] Glucosamine-Chondr- Ms 1 tab PO BID [facility] Last Admin: 11/27/16 08:22 Dose: Not Given Verify Clonidine (Patch) 0 each TOP DAILY [facility] Last Admin: 11/27/16 08:42 Dose: Not Given Ondansetron HCl (Zofran) 4 mg IV Q4H PRN PRN Reason: Nausea/Vomiting Pantoprazole Sodium (Protonix) 40 mg PO BIDAC [facility] Last Admin: 11/27/16 08:19 Dose: 40 mg Polyethylene Glycol (Miralax) 17 gm PO DAILY PRN PRN Reason: Constipation Last Admin: 11/25/16 15:09 Dose: 17 gm Polyethylene Glycol (Miralax) 17 gm PO DAILY [facility] Last Admin: 11/27/16 08:24 Dose: 17 gm Pyridoxine HCl (Vitamin B6-Pyridoxine) 200 mg PO BID [facility] Last Admin: 11/27/16 08:25 Dose: Not Given Senna/Docusate Sodium (Senna Plus) 2 tab PO BID [facility] Last Admin: 11/27/16 08:25 Dose: 2 tab Sodium Chloride (Saline Flush) 10 ml FLUSH ASDIRECTED PRN PRN Reason: Keep Vein Open Discontinued Medications Acetaminophen (Tylenol) 650 mg PO NOW ONE Stop: 11/25/16 11:22 Last Admin: 11/25/16 13:27 Dose: 650 mg Albuterol/Ipratropium (Duoneb 3.0-0.5 Mg/3 Ml) 3 ml NEB ONETIME ONE Stop: 11/25/16 06:59 Last Admin: 11/25/16 07:17 Dose: 3 ml Furosemide (Lasix) 60 mg IVPUSH ONETIME ONE Stop: 11/25/16 07:22 Last Admin: 11/25/16 07:39 Dose: 60 mg Furosemide (Lasix) 40 mg IVPUSH NOW ONE Stop: 11/26/16 08:01 Last Admin: 11/26/16 07:50 Dose: 40 mg Furosemide (Lasix) 40 mg IVPUSH ONETIME ONE Stop: 11/27/16 08:01 Last Admin: 11/27/16 08:19 Dose: 40 mg Methylprednisolone Sodium Succinate (Solu-Medrol) 40 mg IVPUSH Q6H [facility] Last Admin: 11/27/16 11:21 Dose: 40 mg Pneumococcal Polyvalent Vaccine (Pneumovax 23) 0.5 ml IM .ONCE ONE Stop: 11/27/16 14:01 Potassium Chloride (Klor-Con M20) 40 meq PO ONETIME ONE Stop: 11/27/16 09:01 Last Admin: 11/27/16 08:29 Dose: 40 meq Sodium Chloride (Saline Flush) 10 ml FLUSH ASDIRECTED PRN PRN Reason: Keep Vein Open Last Admin: 11/25/16 07:39 Dose: 10 ml Warfarin Sodium (Coumadin) 3 mg PO DAILY@1300 [facility] Last Admin: 11/26/16 12:42 Dose: 3 mg - Exam Quality Assessment: supplemental oxygen, DVT prophylaxis General: alert, oriented, cooperative, mild distress Lungs: Decreased breath sounds, Rhonchi, Wheezing. No: Crackles, Rales, Rub, Stridor Cardiovascular: Regular Rate, Regular Rhythm, No Murmurs Abdomen: bowel sounds present, soft, no distension, tenderness. No: rigidity, rebound, guarding Extremities: no edema Skin: warm, dry, intact - Problem List Review Problem List Initiated/Reviewed/Updated: Yes - My Orders Last 24 Hours: My Active Orders 11/27/16 14:30 methylPREDNISolone Sod Succ [Solu-MEDROL] 40 mg IVPUSH Q12H 11/28/16 05:00 BASIC METABOLIC PANEL,BMP [CHEM] Timed CBC WITH AUTO DIFF [HEME] Timed INR,PT,PROTHROMBIN TIME [COAG] Timed MAGNESIUM [CHEM] Timed - Plan Plan:: ASSESSMENT AND PLAN RIGHT LUNG PNEUMONIA-community acquired, no recent history of steroid use or antibiotics. Modest improvement of symptoms since admission. -Blood and sputum cultures pending -IV Rocephin and azithromycin pending culture results COPD EXACERBATION-he's not had formally documented diagnosis of COPD but by history and recent evaluation this is very highly likely. Shortness of breath is improved with current management. -Supplemental oxygen as needed -Nebulizer therapy with albuterol and duo nebs -Solu-Medrol 40 mg IV every 12 hours ACUTE ON CHRONIC HYPOXIC RESPIRATORY FAILURE-his required increased supplemental oxygen and has documented hypoxia on initial evaluation. Shortness of breath has improved since admission, continues to require supplemental oxygen. -Management of pneumonia and COPD exacerbation as above TEMPORAL HEADACHES-headaches resolved, sedimentation rate within normal range EPIGASTRIC ABDOMINAL PAIN-he developed severe right upper quadrant and epigastric pain following eating. Symptoms include bloating and nausea. Differential includes possible ulcer disease or cysts gastritis duodenitis versus cholecystitis. -Protonix 40 mg by mouth twice a day -When stable from a respiratory status consider further evaluation including EGD and right upper quadrant ultrasound CHRONIC KIDNEY DISEASE STAGE III -Closely monitor urine output and renal function during hospital stay MAINTENANCE ISSUES -DVT prophylaxis; current therapy with warfarin should provide adequate DVT prophylaxis -GI prophylaxis; Protonix as above -Keith catheter; not indicated -Nutrition; 2 g sodium diet -Nicotine dependence; not required CODE STATUS-FULL CODE ADMISSION STATUS-patient will be admitted to inpatient status, expect at least a 2 night hospital stay for evaluation and management of problems as outlined above. At the time of this admission I do not reasonably expected evaluation and management of this problem will require more than a 96 hour hospital stay. DISPOSITION-anticipate discharge to home after the hospital stay. PRIMARY CARE PROVIDER-Dr. Navarro
[2016-11-28] MEDS ORDERED: Metoprolol Tartrate 25 MG Tab PO ONE (04:35)
[2016-11-28] MEDS: Albuterol/Ipratropium 3.0-0.5 MG/3 ML Neb Soln NEB SCH ×4 (07:08→20:51)
--- NOTE | 2016-11-28 07:19 | PCM.SN ---
- Free Text/Narrative Note: time 04:35 call [address] [place] [address] Nursing; elevated blood pressure; 164/110, p 82 denies chest pain, shortness of breath, pain level at base line, patient is awake and walking in room a; elevated blood pressure p; order Metoprolol 25 mg po now. monitor vital signs closely. continue with present plan of care.
[2016-11-28] MEDS: Carvedilol 25 MG Tab PO SCH ×3 (07:33→20:46)
[2016-11-28] MEDS: Pantoprazole 40 MG Tab.CR PO SCH ×2 (07:34→16:35)
[2016-11-28] MEDS: Fluticasone Propionate Nasal Spray 16 GM Bottle NASBOTH SCH (08:52)
[2016-11-28] MEDS: [UNRECOGNIZED DRUG - OTHER] PO SCH ×2 (08:53→20:48)
[2016-11-28] MEDS: Aspirin 81 MG Tab.EC PO SCH (08:54)
[2016-11-28] MEDS: atorvaSTATin 20 MG Tab PO SCH (08:54)
[2016-11-28] MEDS: Magnesium Sulfate/Water 2 GM in Premix Bag 1 BAG IV SCH ×2 (08:55→18:42)
[2016-11-28] MEDS: Gabapentin 100 MG Cap PO SCH ×3 (08:56→20:48)
[2016-11-28] MEDS: Polyethylene Glycol 3350 Powder 17 GM Packet PO SCH (08:59)
[2016-11-28] MEDS: [UNRECOGNIZED DRUG - REMARK] TOP SCH (08:59)
[2016-11-28] MEDS ORDERED: Potassium Chloride 20 MEQ Tab.ER PO ONE (09:00)
[2016-11-28] MEDS: Vitamin B6-pyridOXINE 50 MG Tab PO SCH (09:01)
[2016-11-28] MEDS: Methadone 10 MG Tab PO SCH ×3 (09:05→20:51)
[2016-11-28] MEDS: cefTRIAXone 1 GM in Sodium Chloride 0.9% 50 ML IV SCH (11:30)
--- NOTE | 2016-11-28 11:48 | PCM.PN ---
- General Info Date of Service: 11/28/16 Functional Status: Reports: pain controlled, ambulating, urinating - Review of Systems General: Reports: Weakness. Denies: Fever, Chills Pulmonary: Reports: shortness of breath, wheezing. Denies: pleuritic chest pain , cough, sputum, hemoptysis Cardiovascular: Reports: Dyspnea on Exertion. Denies: Chest Pain, Palpitations , Orthopnea, PND, Edema, Lightheadedness Gastrointestinal: Reports: Abdominal pain, Nausea. Denies: Constipation, Diarrhea, Difficulty swallowing, Vomiting Systems Review Comment:: This patient has experienced further improvement in his shortness of breath, presently is fairly close to his baseline. Vital signs have been stable and he has remained afebrile. Continues to experience abdominal discomfort and bloating with nausea, following eating. - Patient Data Vitals - most recent: Last Vital Signs Temp 97.6 F 11/28/16 11:02 Pulse 97 11/28/16 11:02 Resp 16 11/28/16 11:02 BP 147/97 H 11/28/16 11:02 Pulse Ox 95 11/28/16 11:02 Weight - most recent: 264 lb 14.413 oz I&O - last 24 hours: Intake & Output 11/27/16 11/28/16 11/28/16 22:59 06:59 14:59 Intake Total 300 640 Output Total 550 525 Balance -250 -525 640 Lab Results last 24 hrs: Laboratory Results - last 24 hr 11/28/16 11/28/16 11/28/16 Range/Units 05:45 05:45 05:45 WBC 14.7 H (4.5-11.0) K/uL RBC 4.07 L (4.30-5.90) M/uL Hgb 13.0 (12.0-15.0) g/dL Hct 39.6 L (40.0-54.0) % MCV 97 (80-98) fL MCH 32 H (27-31) pg MCHC 33 (32-36) % Plt Count 192 (150-400) K/uL Neut % (Auto) 92 H (36-66) % Lymph % (Auto) 4 L (24-44) % [place] % (Auto) 4 (2-6) % Eos % (Auto) 0 L (2-4) % Baso % (Auto) 0 (0-1) % PT 38.3 H (9.5-12.0) sec INR 3.48 H (0.80-1.20) Sodium 146 (140-148) mmol/L Potassium 3.3 L (3.6-5.2) mmol/L Chloride 105 (100-108) mmol/L Carbon Dioxide 34 H (21-32) mmol/L Anion Gap 10.3 (5.0-14.0) mmol/L BUN 24 H (7-18) mg/dL Creatinine 1.2 (0.8-1.3) mg/dL Est Cr Clr Drug Dosing 57.56 mL/min Estimated GFR (MDRD) 59 L (>60) Glucose 137 H (74-106) mg/dL Calcium 8.1 L (8.5-10.1) mg/dL Magnesium 1.7 L (1.8-2.4) mg/dL Med Orders - Current: Current Medications Acetaminophen (Tylenol) 650 mg PO Q4H PRN PRN Reason: Pain (Mild 1-3)/fever Last Admin: 11/26/16 15:06 Dose: 650 mg Albuterol (Proventil Neb Soln) 2.5 mg NEB Q4H PRN PRN Reason: Shortness Of Breath/wheezing Albuterol/Ipratropium (Duoneb 3.0-0.5 Mg/3 Ml) 3 ml NEB QIDRT [facility] Last Admin: 11/28/16 10:45 Dose: 3 ml Aspirin (Halfprin) 81 mg PO DAILY [facility] Last Admin: 11/28/16 08:54 Dose: 81 mg Atorvastatin Calcium (Lipitor) 40 mg PO DAILY [facility] Last Admin: 11/28/16 08:54 Dose: 40 mg Carvedilol (Coreg) 25 mg PO BID [facility] Last Admin: 11/28/16 08:23 Dose: Not Given Clonidine HCl (Catapres-Tts 1) 0.1 mg TOP Q7D [facility] Last Admin: 11/26/16 08:02 Dose: 0.1 mg Docusate Sodium (Colace) 100 mg PO BID PRN PRN Reason: Constipation Last Admin: 11/26/16 08:01 Dose: 100 mg Fluticasone Propionate (Flonase) 0 gm NASBOTH DAILY [facility] Last Admin: 11/28/16 08:52 Dose: 2 sprays Gabapentin (Neurontin) 100 mg PO TID [facility] Last Admin: 11/28/16 08:56 Dose: 100 mg Azithromycin 500 mg/ Sodium (Chloride) 250 mls @ 250 mls/hr IV Q24H [facility] Last Admin: 11/27/16 13:39 Dose: 250 mls/hr Ceftriaxone Sodium 1 gm/ (Sodium Chloride) 50 mls @ 100 mls/hr IV Q24H [facility] Last Admin: 11/28/16 11:30 Dose: 100 mls/hr Magnesium Sulfate 2 gm/ Premix 50 mls @ 25 mls/hr IV Q6H [facility] Stop: 11/28/16 16:59 Last Admin: 11/28/16 08:55 Dose: 25 mls/hr Potassium Chloride 20 meq/Lidocaine HCl 2 ml/ Sodium Chloride 112 mls @ 56 mls/ hr IV Q2H [facility] Stop: 11/28/16 14:59 Magnesium Hydroxide (Milk Of Magnesia) 30 ml PO Q12H PRN PRN Reason: Constipation Methadone HCl (Methadone) 30 mg PO TID [facility] Last Admin: 11/28/16 09:05 Dose: 30 mg Methylprednisolone Sodium Succinate (Solu-Medrol) 40 mg IVPUSH Q12H [facility] Last Admin: 11/27/16 23:09 Dose: 40 mg Mineral Oil/White Petrolatum (Hydrocerin Crm) 0 gm TOP ASDIRECTED [facility] Last Admin: 11/26/16 07:40 Dose: 1 applic (Gluc/[facility]-Msm#1/Vit C/James/Bor [[facility] Glucosamine-Chondr- Ms 1 tab PO BID [facility] Last Admin: 11/28/16 08:53 Dose: Not Given Verify Clonidine (Patch) 0 each TOP DAILY [facility] Last Admin: 11/28/16 08:59 Dose: Not Given Ondansetron HCl (Zofran) 4 mg IV Q4H PRN PRN Reason: Nausea/Vomiting Pantoprazole Sodium (Protonix) 40 mg PO BIDAC [facility] Last Admin: 11/28/16 07:34 Dose: 40 mg Polyethylene Glycol (Miralax) 17 gm PO DAILY PRN PRN Reason: Constipation Last Admin: 11/25/16 15:09 Dose: 17 gm Polyethylene Glycol (Miralax) 17 gm PO DAILY [facility] Last Admin: 11/28/16 08:59 Dose: 17 gm Pyridoxine HCl (Vitamin B6-Pyridoxine) 200 mg PO BID [facility] Last Admin: 11/28/16 09:01 Dose: 200 mg Senna/Docusate Sodium (Senna Plus) 2 tab PO BID [facility] Last Admin: 11/28/16 08:57 Dose: 2 tab Sodium Chloride (Saline Flush) 10 ml FLUSH ASDIRECTED PRN PRN Reason: Keep Vein Open Discontinued Medications Acetaminophen (Tylenol) 650 mg PO NOW ONE Stop: 11/25/16 11:22 Last Admin: 11/25/16 13:27 Dose: 650 mg Albuterol/Ipratropium (Duoneb 3.0-0.5 Mg/3 Ml) 3 ml NEB ONETIME ONE Stop: 11/25/16 06:59 Last Admin: 11/25/16 07:17 Dose: 3 ml Furosemide (Lasix) 60 mg IVPUSH ONETIME ONE Stop: 11/25/16 07:22 Last Admin: 11/25/16 07:39 Dose: 60 mg Furosemide (Lasix) 40 mg IVPUSH NOW ONE Stop: 11/26/16 08:01 Last Admin: 11/26/16 07:50 Dose: 40 mg Furosemide (Lasix) 40 mg IVPUSH ONETIME ONE Stop: 11/27/16 08:01 Last Admin: 11/27/16 08:19 Dose: 40 mg Methylprednisolone Sodium Succinate (Solu-Medrol) 40 mg IVPUSH Q6H [facility] Last Admin: 11/27/16 11:21 Dose: 40 mg Metoprolol Tartrate (Lopressor) 25 mg PO ONETIME ONE Stop: 11/28/16 04:36 Last Admin: 11/28/16 04:48 Dose: 25 mg Pneumococcal Polyvalent Vaccine (Pneumovax 23) 0.5 ml IM .ONCE ONE Stop: 11/27/16 14:01 Potassium Chloride (Klor-Con M20) 40 meq PO ONETIME ONE Stop: 11/27/16 09:01 Last Admin: 11/27/16 08:29 Dose: 40 meq Potassium Chloride (Klor-Con M20) 40 meq PO ONETIME ONE Stop: 11/28/16 09:01 Last Admin: 11/28/16 08:53 Dose: 40 meq Sodium Chloride (Saline Flush) 10 ml FLUSH ASDIRECTED PRN PRN Reason: Keep Vein Open Last Admin: 03/21/17 07:39 Dose: 10 ml Warfarin Sodium (Coumadin) 3 mg PO DAILY@1300 KAVITA Last Admin: 11/26/16 12:42 Dose: 3 mg - Exam Quality Assessment: supplemental oxygen, DVT prophylaxis General: alert, oriented, cooperative, mild distress Lungs: Clear to auscultation, Normal respiratory effort, Decreased breath sounds Cardiovascular: Regular Rate, No Murmurs, Irregular Rhythm. No: Bradycardia, Tachycardia Abdomen: bowel sounds present, soft, no distension, tenderness. No: rigidity, rebound, guarding Extremities: no edema Skin: warm, dry, intact - Problem List Review Problem List Initiated/Reviewed/Updated: Yes - My Orders Last 24 Hours: My Active Orders 11/27/16 23:00 methylPREDNISolone Sod Succ [Solu-MEDROL] 40 mg IVPUSH Q12H 11/28/16 09:00 Magnesium Sulfate/Water [Magnesium Sulfate 2 GM in Water 50 ML] 2 gm Premix Bag 1 bag IV Q6H 11/28/16 11:00 Potassium Chloride 20 meq Lidocaine 1% [Xylocaine 1%] 2 ml Sodium Chloride 0.9 % [Normal Saline] 100 ml IV Q2H 11/28/16 11:42 Abdomen Ltd [US] Urgent 11/29/16 05:00 BASIC METABOLIC PANEL,BMP [CHEM] Timed CBC WITH AUTO DIFF [HEME] Timed INR,PT,PROTHROMBIN TIME [COAG] Timed MAGNESIUM [CHEM] Timed - Plan Plan:: ASSESSMENT AND PLAN RIGHT LUNG PNEUMONIA-community acquired, no recent history of steroid use or antibiotics. Further improvement over the past 24 hours -Blood and sputum cultures negative thus far -IV Rocephin and azithromycin pending culture results COPD EXACERBATION-he's not had formally documented diagnosis of COPD but by history and recent evaluation this is very highly likely. Shortness of breath is improved with current management. -Supplemental oxygen as needed -Nebulizer therapy with albuterol and duo nebs -Prednisone 40 mg by mouth daily ACUTE ON CHRONIC HYPOXIC RESPIRATORY FAILURE-his required increased supplemental oxygen and has documented hypoxia on initial evaluation. Shortness of breath has improved since admission, continues to require supplemental oxygen. -Management of pneumonia and COPD exacerbation as above -Check oxygen saturations at rest and with activity did determine if he'll require continuous supplemental oxygen at home TEMPORAL HEADACHES-headaches resolved, sedimentation rate within normal range EPIGASTRIC ABDOMINAL PAIN-he developed severe right upper quadrant and epigastric pain following eating. Symptoms include bloating and nausea. Symptoms have not really improved with use of proton pump inhibitor therapy. -Protonix 40 mg by mouth twice a day -Abdominal ultrasound to evaluate for gallbladder disease CHRONIC KIDNEY DISEASE STAGE III -Closely monitor urine output and renal function during hospital stay MAINTENANCE ISSUES -DVT prophylaxis; current therapy with warfarin should provide adequate DVT prophylaxis -GI prophylaxis; Protonix as above -Keith catheter; not indicated -Nutrition; 2 g sodium diet -Nicotine dependence; not required CODE STATUS-FULL CODE ADMISSION STATUS-patient will be admitted to inpatient status, expect at least a 2 night hospital stay for evaluation and management of problems as outlined above. At the time of this admission I do not reasonably expected evaluation and management of this problem will require more than a 96 hour hospital stay. DISPOSITION-anticipate discharge to home after the hospital stay. PRIMARY CARE PROVIDER-Dr. Navarro
[2016-11-28] MEDS: Potassium Chloride 20 MEQ, Lidocaine 1% 2 ML in Sodium Chloride 0.9% 100 ML IV SCH ×2 (12:51→16:35)
[2016-11-28] MEDS: predniSONE 20 MG Tab PO SCH (12:52)
--- NOTE | 2016-11-28 15:02 | US ---
Ultrasound abdomen Limited. Findings: Pancreas is not well-seen.. Shadowing about the liver limits details. No gross evidence fo r liver mass. No gallbladder wall thickening. Negative sonographic Ram sign. No stones. Common bi le duct 6 mm. Right kidney 11.4 cm. No hydronephrosis right kidney. No definitive evidence for ascit es fluid. Impression: 1. Gallbladder within normal limits. 2. Limitations of the liver without gross evidence for mass.
[2016-11-28] MEDS: Azithromycin 500 MG in Sodium Chloride 0.9% 250 ML IV SCH (15:18)
[2016-11-28] MEDS: methylPREDNISolone Sodium Succinate 40 MG/1 ML SDV IVPUSH SCH (15:23)
[2016-11-29] MEDS: Vitamin B6-pyridOXINE 50 MG Tab PO SCH ×3 (05:58→08:29)
[2016-11-29] MEDS: Albuterol/Ipratropium 3.0-0.5 MG/3 ML Neb Soln NEB SCH ×2 (07:55→11:06)
[2016-11-29] MEDS: Methadone 10 MG Tab PO SCH (08:15)
[2016-11-29] MEDS: Pantoprazole 40 MG Tab.CR PO SCH (08:16)
[2016-11-29] MEDS: Carvedilol 25 MG Tab PO SCH (08:17)
[2016-11-29] MEDS: Aspirin 81 MG Tab.EC PO SCH (08:17)
[2016-11-29] MEDS: Polyethylene Glycol 3350 Powder 17 GM Packet PO SCH (08:17)
[2016-11-29] MEDS: [UNRECOGNIZED DRUG - OTHER] PO SCH (08:18)
[2016-11-29] MEDS: Fluticasone Propionate Nasal Spray 16 GM Bottle NASBOTH SCH (08:18)
[2016-11-29] MEDS: atorvaSTATin 20 MG Tab PO SCH (08:18)
[2016-11-29] MEDS: predniSONE 20 MG Tab PO SCH (08:19)
[2016-11-29] MEDS: [UNRECOGNIZED DRUG - REMARK] TOP SCH (08:20)
[2016-11-29] MEDS: Gabapentin 100 MG Cap PO SCH (08:21)
[2016-11-29 10:53] VITALS: BP 127/85
[2016-11-29] MEDS ORDERED: Pneumococcal Polyvalent-23 Vaccine 0.5 ML SDV IM ONE (11:30)
--- NOTE | 2016-11-29 13:50 | PCM.DCSUM1 ---
Discharge Summary - Hospital Course Brief History: This patient is a 76-year-old gentleman with a known history of COPD who was admitted with hypoxia secondary to COPD exacerbation and right lung pneumonia. - Discharge Data Discharge Date: 11/29/16 Discharge Disposition: Home, Self-Care 01 Condition: Fair - Discharge Diagnosis/Problem(s) (1) Hypoxia SNOMED Code(s): 075096170, 947138677 ICD Code: R09.02 - HYPOXEMIA Status: Acute Current Visit: Yes (2) Pneumonia SNOMED Code(s): 162601223 ICD Code: J18.9 - PNEUMONIA, UNSPECIFIED ORGANISM Status: Acute Current Visit: Yes (3) COLD, Chronic obstructive lung disease SNOMED Code(s): 83308479 ICD Code: J44.9 - CHRONIC OBSTRUCTIVE PULMONARY DISEASE, UNSPECIFIED Status : Chronic Current Visit: No (4) CKD (chronic kidney disease) stage 3, GFR 30-59 ml/min SNOMED Code(s): 672789425 ICD Code: N18.3 - CHRONIC KIDNEY DISEASE, STAGE 3 (MODERATE) Status: Acute Current Visit: Yes - Patient Summary/Data Hospital Course: This patient is a 76-year-old gentleman who was admitted through the emergency department because of increased shortness of breath and cough. On initial assessment was found to be hypoxic and required an increase in supplemental oxygen to maintain adequate saturations. White blood cell count was found to be normal, chest x-ray showed evidence of a right lung infiltrate consistent with pneumonia. Blood and sputum cultures were obtained at the time of admission but remain negative throughout his hospital stay. On admission he was given IV fluids for hydration, nebulizer therapy, supplemental oxygen, IV antibiotics for community-acquired pneumonia, and IV Solu-Medrol. With these interventions he experienced improvement in his respiratory status and was almost back to baseline by the time of discharge. On admission reported a recent history of severe bilateral temporal headaches. He had no tenderness to palpation over the temporal arteries and denied any visual changes or jaw claudication. Sedimentation rate was obtained and found to be within normal range making the diagnosis of temporal arteritis very unlikely. He also reported ongoing difficulty with upper abdominal plain and bloating following eating. He was noted to have a ventral hernia which he's had for some time. During his hospital stay ultrasound was obtained and showed no evidence of underlying gallbladder disease. He noted marked improvement in his symptoms after had a bowel movement and was felt that ongoing and intermittent difficulty with constipation most likely explanation for his symptoms. Prior to discharge assessment was made of this oxygen saturations, on the 24 at rest he had an oxygen saturation of 87%. He will be discharged to home with continuous home oxygen. Activity will be as tolerated and he will resume his usual diet. Followup appointment will be scheduled through the [facility] system within one week. - Patient Instructions Diet: Usual Diet as Tolerated Activity: As Tolerated Other/Special Instructions: Schedule followup appointment with the [facility] system within one week. - Discharge Plan Prescriptions/Med Rec: Levofloxacin [Levaquin] 500 mg PO Q24H #7 tablet Prednisone [IJD: predniSONE] 40 mg PO DAILY #6 tablet Home Medications: Home Meds Aspirin [Adult Low Dose Aspirin EC] 81 mg PO DAILY 04/30/14 [History] Carvedilol [Coreg] 1 tab PO BID 04/30/14 [History] Furosemide [Lasix] 20 mg PO DAILY 04/30/14 [History] Gabapentin [Neurontin] 1 tab PO TID 04/30/14 [History] Methadone HCl 3 tab PO TID 04/30/14 [History] Multivitamin [Multi-Vitamin Daily] 1 tab PO DAILY 04/30/14 [History] Omeprazole 1 tab PO DAILY 04/30/14 [History] Warfarin [Coumadin] 3 mg PO DAILY 04/30/14 [History] cloNIDine 1 patch TOP WEEKLY 04/30/14 [History] Albuterol Sulfate [Proair Respiclick] 2 puff INH QID PRN 11/25/16 [History] Albuterol [Proventil Neb Soln] 11/25/16 [History] Albuterol/Ipratropium [Combivent Respimat] 1 puff INH QID 11/25/16 [History] Docusate Sodium/Sennosides [Senna Plus] 2 tab PO BID 11/25/16 [History] Emollient [Vanicream] 1 applic TOP BID 11/25/16 [History] Fluticasone Propionate [Flonase] 2 sprays YADIEL QAM 11/25/16 [History] Nitroglycerin [Nitrostat] 1 tab PO ASDIRECTED PRN 11/25/16 [History] Polyethylene Glycol 1000 [Polyethylene Glycol] 17 gm PO DAILY 11/25/16 [History] atorvaSTATin [Lipitor] 40 mg PO DAILY 11/25/16 [History] Levofloxacin [Levaquin] 500 mg PO Q24H #7 tablet 11/29/16 [Rx] Prednisone [IJD: predniSONE] 40 mg PO DAILY #6 tablet 11/29/16 [Rx] Referrals: PCP,None [Primary Care Provider] - - Patient Data Vitals - Most Recent: Last Vital Signs Temp 97.2 F 11/29/16 10:50 Pulse 77 11/29/16 10:50 Resp 18 11/29/16 10:50 BP 127/85 11/29/16 10:50 Pulse Ox 96 11/29/16 10:50 Weight - Most Recent: 264 lb 14.413 oz I&O - Last 24 hours: Intake & Output 11/28/16 11/29/16 11/29/16 22:59 06:59 14:59 Intake Total 770 240 Output Total 650 425 Balance 120 -425 240 Lab Results - Last 24 hrs: Laboratory Results - last 24 hr 11/29/16 11/29/16 11/29/16 Range/Units 05:42 05:42 05:42 WBC 11.3 H (4.5-11.0) K/uL RBC 4.20 L (4.30-5.90) M/uL Hgb 13.4 (12.0-15.0) g/dL Hct 41.3 (40.0-54.0) % MCV 98 (80-98) fL MCH 32 H (27-31) pg MCHC 32 (32-36) % Plt Count 204 (150-400) K/uL Neut % (Auto) 79 H (36-66) % Lymph % (Auto) 12 L (24-44) % [place] % (Auto) 9 H (2-6) % Eos % (Auto) 0 L (2-4) % Baso % (Auto) 0 (0-1) % PT 32.5 H (9.5-12.0) sec INR 2.96 H (0.80-1.20) Sodium 145 (140-148) mmol/L Potassium 4.0 (3.6-5.2) mmol/L Chloride 105 (100-108) mmol/L Carbon Dioxide 35 H (21-32) mmol/L Anion Gap 9.0 (5.0-14.0) mmol/L BUN 19 H (7-18) mg/dL Creatinine 1.2 (0.8-1.3) mg/dL Est Cr Clr Drug Dosing 57.56 mL/min Estimated GFR (MDRD) 59 L (>60) Glucose 108 H (74-106) mg/dL Calcium 7.9 L (8.5-10.1) mg/dL Magnesium 2.4 (1.8-2.4) mg/dL Med Orders - Current: Current Medications Acetaminophen (Tylenol) 650 mg PO Q4H PRN PRN Reason: Pain (Mild 1-3)/fever Last Admin: 11/26/16 15:06 Dose: 650 mg Albuterol (Proventil Neb Soln) 2.5 mg NEB Q4H PRN PRN Reason: Shortness Of Breath/wheezing Albuterol/Ipratropium (Duoneb 3.0-0.5 Mg/3 Ml) 3 ml NEB QIDRT [facility] Last Admin: 11/29/16 11:06 Dose: 3 ml Aspirin (Halfprin) 81 mg PO DAILY [facility] Last Admin: 11/29/16 08:17 Dose: 81 mg Atorvastatin Calcium (Lipitor) 40 mg PO DAILY [facility] Last Admin: 11/29/16 08:18 Dose: 40 mg Carvedilol (Coreg) 25 mg PO BID [facility] Last Admin: 11/29/16 08:17 Dose: 25 mg Clonidine HCl (Catapres-Tts 1) 0.1 mg TOP Q7D [facility] Last Admin: 11/26/16 08:02 Dose: 0.1 mg Docusate Sodium (Colace) 100 mg PO BID PRN PRN Reason: Constipation Last Admin: 11/26/16 08:01 Dose: 100 mg Fluticasone Propionate (Flonase) 0 gm NASBOTH DAILY [facility] Last Admin: 11/29/16 08:18 Dose: 2 sprays Gabapentin (Neurontin) 100 mg PO TID [facility] Last Admin: 11/29/16 08:21 Dose: 100 mg Magnesium Hydroxide (Milk Of Magnesia) 30 ml PO Q12H PRN PRN Reason: Constipation Methadone HCl (Methadone) 30 mg PO TID [facility] Last Admin: 11/29/16 08:15 Dose: 30 mg Mineral Oil/White Petrolatum (Hydrocerin Crm) 0 gm TOP ASDIRECTED [facility] Last Admin: 11/26/16 07:40 Dose: 1 applic (Gluc/[facility]-Msm#1/Vit C/James/Bor [[facility] Glucosamine-Chondr- Ms 1 tab PO BID [facility] Last Admin: 11/29/16 08:18 Dose: Not Given Verify Clonidine (Patch) 0 each TOP DAILY [facility] Last Admin: 11/29/16 08:20 Dose: Not Given Ondansetron HCl (Zofran) 4 mg IV Q4H PRN PRN Reason: Nausea/Vomiting [facility] Last Admin: 11/29/16 08:16 Dose: 40 mg Polyethylene Glycol (Miralax) 17 gm PO DAILY PRN PRN Reason: Constipation Last Admin: 11/25/16 15:09 Dose: 17 gm Polyethylene Glycol (Miralax) 17 gm PO DAILY [facility] Last Admin: 11/29/16 08:17 Dose: 17 gm Prednisone (Prednisone) 40 mg PO DAILY [facility] Last Admin: 11/29/16 08:19 Dose: 40 mg Pyridoxine HCl (Vitamin B6-Pyridoxine) 200 mg PO BID [facility] Last Admin: 11/29/16 08:29 Dose: Not Given Senna/Docusate Sodium (Senna Plus) 2 tab PO BID [facility] Last Admin: 11/29/16 08:19 Dose: 2 tab Sodium Chloride (Saline Flush) 10 ml FLUSH ASDIRECTED PRN PRN Reason: Keep Vein Open Discontinued Medications Acetaminophen (Tylenol) 650 mg PO NOW ONE Stop: 11/25/16 11:22 Last Admin: 11/25/16 13:27 Dose: 650 mg Albuterol/Ipratropium (Duoneb 3.0-0.5 Mg/3 Ml) 3 ml NEB ONETIME ONE Stop: 11/25/16 06:59 Last Admin: 11/25/16 07:17 Dose: 3 ml Furosemide (Lasix) 60 mg IVPUSH ONETIME ONE Stop: 11/25/16 07:22 Last Admin: 11/25/16 07:39 Dose: 60 mg Furosemide (Lasix) 40 mg IVPUSH NOW ONE Stop: 11/26/16 08:01 Last Admin: 11/26/16 07:50 Dose: 40 mg Furosemide (Lasix) 40 mg IVPUSH ONETIME ONE Stop: 11/27/16 08:01 Last Admin: 11/27/16 08:19 Dose: 40 mg Azithromycin 500 mg/ Sodium (Chloride) 250 mls @ 250 mls/hr IV Q24H [facility] Last Admin: 11/28/16 15:18 Dose: 250 mls/hr Ceftriaxone Sodium 1 gm/ (Sodium Chloride) 50 mls @ 100 mls/hr IV Q24H [facility] Last Admin: 11/28/16 11:30 Dose: 100 mls/hr Magnesium Sulfate 2 gm/ Premix 50 mls @ 25 mls/hr IV Q6H [facility] Stop: 11/28/16 16:59 Last Admin: 11/28/16 18:42 Dose: 25 mls/hr Potassium Chloride 20 meq/Lidocaine HCl 2 ml/ Sodium Chloride 112 mls @ 56 mls/ hr IV Q2H [facility] Stop: 11/28/16 14:59 Last Admin: 11/28/16 16:35 Dose: 56 mls/hr Methylprednisolone Sodium Succinate (Solu-Medrol) 40 mg IVPUSH Q6H [facility] Last Admin: 11/27/16 11:21 Dose: 40 mg Methylprednisolone Sodium Succinate (Solu-Medrol) 40 mg IVPUSH Q12H [facility] Last Admin: 11/28/16 15:23 Dose: Not Given Metoprolol Tartrate (Lopressor) 25 mg PO ONETIME ONE Stop: 11/28/16 04:36 Last Admin: 11/28/16 04:48 Dose: 25 mg Pneumococcal Polyvalent Vaccine (Pneumovax 23) 0.5 ml IM .ONCE ONE Stop: 11/27/16 14:01 Pneumococcal Polyvalent Vaccine (Pneumovax 23) 0.5 ml IM .ONCE ONE Stop: 11/29/16 11:31 Last Admin: 11/29/16 11:23 Dose: 0.5 ml Potassium Chloride (Klor-Con M20) 40 meq PO ONETIME ONE Stop: 11/27/16 09:01 Last Admin: 11/27/16 08:29 Dose: 40 meq Potassium Chloride (Klor-Con M20) 40 meq PO ONETIME ONE Stop: 11/28/16 09:01 Last Admin: 11/28/16 08:53 Dose: 40 meq Sodium Chloride (Saline Flush) 10 ml FLUSH ASDIRECTED PRN PRN Reason: Keep Vein Open Last Admin: 11/25/16 07:39 Dose: 10 ml Warfarin Sodium (Coumadin) 3 mg PO DAILY@1300 KAV[facility] Last Admin: 11/26/16 12:42 Dose: 3 mg *Q Meaningful Use (DIS) - VTE *Q VTE Criteria *Q: VTE Pharmacological Contraindications *Q: High INR Value - Stroke *Q Stroke Criteria *Q: - AMI *Q AMI Criteria *Q:
== END 2016-11-29 14:30 | disposition home or self-care (01) | DRG 193 ==
LOC: JP.ED 06:30 → JP.ICU 10:29 → JP.MS 11-26 18:15
PROVIDERS: ADMIT Hospitalist; ATTEND Hospitalist
DX: J18.9 Pneumonia, unspecified organism (principal); J96.21 Acute and chronic respiratory failure with hypoxia; J44.1 Chronic obstructive pulmonary disease with (acute) exacerbation; Z87.891 Personal history of nicotine dependence; I12.9 Hypertensive chronic kidney disease with stage 1 through stage 4 chronic kidney disease, or unspecified chronic kidney disease; N18.3 Chronic kidney disease, stage 3 (moderate); G44.89 Other headache syndrome; Z23 Encounter for immunization; R10.13 Epigastric pain; I48.91 Unspecified atrial fibrillation; Z79.01 Long term (current) use of anticoagulants; Z99.81 Dependence on supplemental oxygen; Z86.718 Personal history of other venous thrombosis and embolism; E78.00 Pure hypercholesterolemia, unspecified; Z95.0 Presence of cardiac pacemaker; K44.9 Diaphragmatic hernia without obstruction or gangrene; M54.9 Dorsalgia, unspecified; G89.29 Other chronic pain; Z96.659 Presence of unspecified artificial knee joint; K43.9 Ventral hernia without obstruction or gangrene; Z79.82 Long term (current) use of aspirin; Z79.52 Long term (current) use of systemic steroids; Z88.8 Allergy status to other drugs, medicaments and biological substances; Z91.048 Other nonmedicinal substance allergy status; E66.9 Obesity, unspecified; Z68.30 Body mass index [BMI] 30.0-30.9, adult
CPT/HCPCS: 36415; 36600; 71010; 71010-26; 76705; 76705-26; 80048; 80053; 82803; 83735; 83880; 85025; 85610; 85651; 86140; 87040; 87070; 87205; 90732; 93005; 93010; 94640-76; 96365; 96374; 96375; 99222-AI; 99232; 99238; 99285; 99285-25; A9270-GY; G0009; J0456; J0696; J1940; J2920; J3475; J3480; J7030; J7050; J7620

== ENCOUNTER 2020-01-16 18:09 | Emergency (ER) | payer MEDICARE, SELFPAY ==
[2020-01-16 18:18] VITALS: BP 160/104; PULSE 86
--- NOTE | 2020-01-16 19:12 | EDM.PDOC ---
ED HPI GENERAL MEDICAL PROBLEM - General Chief Complaint: General Stated Complaint: WEAK Time Seen by Provider: 01/16/20 18:45 Source of Information: Reports: Patient, Family History Limitations: Reports: No Limitations - History of Present Illness INITIAL COMMENTS - FREE TEXT/NARRATIVE: 79-year-old male who has a history of chronic congestive heart failure, chronic back pain who is on methadone for many years, but over the past several months has been weaned down and he stopped it completely 11 days ago. Since that time he has had some significant increase in back pain, resting tremor that seems to improve with activity, weakness and difficulty walking, and leg pain. He has a poor appetite and is "always cold". Denies significant shortness of breath while at rest, has had no significant fever chills, denies cough, urinary symptoms, rash or peripheral edema. He does have a pacemaker and is on chronic anticoagulation, he used to be Coumadin but now is on a red pill that he no longer needs blood tests. Nothing has changed significantly in the last 1 to 2 days except for he has started to have periods of hallucinations which concerned his son enough to bring him in today. He has a lot of different complaints, but his main complaints are progressive weakness, worsening tremor especially resting tremor, and now intermittent hallucinations. He is very lucid at this time and knows his history well. Onset: Gradual Duration: Week(s): (Generalized symptoms have been worsening for the last couple of weeks) Location: Reports: Generalized Associated Symptoms: Reports: Confusion (Intermittent, none currently), Loss of Appetite, Malaise, Shortness of Breath (Intermittent, wears oxygen at night), Weakness. Denies: Cough, Fever/Chills, Nausea/Vomiting Back Pain Score (Numeric/FACES): 9 - Related Data Allergies Allergy/AdvReac Type Severity Reaction Status Date / Time adhesive Allergy Rash Verified 01/16/20 18:24 amlodipine Allergy Cannot Verified 01/16/20 18:24 Remember latex Allergy Hives Verified 01/16/20 18:24 meperidine HCl [From Demerol] Allergy Hallucinati Verified 01/16/20 18:24 ons propranolol Allergy Cannot Verified 01/16/20 18:24 Remember Home Meds: Home Meds Aspirin [Adult Low Dose Aspirin EC] 81 mg PO DAILY 04/30/14 [History] Furosemide [Lasix] 20 mg PO DAILY 04/30/14 [History] Gabapentin [Neurontin] 1 tab PO TID 04/30/14 [History] Methadone HCl 1 tab PO TID 04/30/14 [History] Multivitamin [Multi-Vitamin Daily] 1 tab PO DAILY 04/30/14 [History] Omeprazole 1 tab PO DAILY 04/30/14 [History] carvediloL [Coreg] 1 tab PO BID 04/30/14 [History] cloNIDine 1 patch TOP WEEKLY 04/30/14 [History] Albuterol Sulfate [Proair Respiclick] 2 puff INH QID PRN 11/25/16 [History] Albuterol [Proventil Neb Soln] 1 dose INH ASDIRECTED 11/25/16 [History] Albuterol/Ipratropium [Combivent Respimat] 1 puff INH QID 11/25/16 [History] Docusate Sodium/Sennosides [Senna Plus] 2 tab PO BID 11/25/16 [History] Emollient [Vanicream] 1 applic TOP BID 11/25/16 [History] Fluticasone Propionate [Flonase] 2 sprays YADIEL QAM 11/25/16 [History] Nitroglycerin [Nitrostat] 1 tab PO ASDIRECTED PRN 11/25/16 [History] Polyethylene Glycol 1000 [Polyethylene Glycol] 17 gm PO DAILY 11/25/16 [History] atorvaSTATin [Lipitor] 40 mg PO DAILY 11/25/16 [History] Levofloxacin [Levaquin] 500 mg PO Q24H #7 tablet 11/29/16 [Rx] Prednisone [IJD: predniSONE] 40 mg PO DAILY #6 tablet 11/29/16 [Rx] Past Medical History HEENT History: Reports: Impaired Vision Cardiovascular History: Reports: Afib, Blood Clots/VTE/DVT, High Cholesterol, Hypertension, Pacemaker, SOB on Exertion Respiratory History: Reports: COPD Gastrointestinal History: Reports: Hiatal Hernia Musculoskeletal History: Reports: Back Pain, Chronic Neurological History: Reports: Neuropathy, Peripheral Psychiatric History: Reports: Addiction, Anxiety Endocrine/Metabolic History: Reports: Obesity/BMI 30+ Dermatologic History: Reports: Melanoma - Past Surgical History Head Surgeries/Procedures: Reports: None HEENT Surgical History: Reports: None Cardiovascular Surgical History: Reports: None Respiratory Surgical History: Reports: None GI Surgical History: Reports: None Endocrine Surgical History: Reports: None Neurological Surgical History: Reports: Lumbar Spine Musculoskeletal Surgical History: Reports: Knee Replacement Other Musculoskeletal Surgeries/Procedures:: left knee replacement Dermatological Surgical History: Reports: None Social & Family History - Tobacco Use Smoking Status *Q: Current Every Day Smoker Years of Tobacco use: 60 Packs/Tins Daily: 0.5 - Caffeine Use Caffeine Use: Reports: Soda - Recreational Drug Use Recreational Drug Use: No ED ROS GENERAL - Review of Systems Review Of Systems: See Below Constitutional: Reports: Malaise, Decreased Appetite. Denies: Fever, Chills HEENT: Denies: Vision Change Respiratory: Reports: Shortness of Breath. Denies: Cough, Sputum Cardiovascular: Denies: Chest Pain, Palpitations Endocrine: Reports: Fatigue GI/Abdominal: Denies: Abdominal Pain, Nausea, Vomiting Musculoskeletal: Reports: Muscle Pain (Generalized muscle pain especially in the lower extremities) Skin: Reports: No Symptoms. Denies: Pallor, Bruising Neurological: Reports: Confusion, Tremors, Difficulty Walking, Weakness Psychiatric: Reports: No Symptoms ED EXAM, GENERAL - Physical Exam Exam: See Below Exam Limited By: No Limitations General Appearance: Alert, No Apparent Distress Eye Exam: Bilateral Eye: EOMI, Normal Inspection Head: Atraumatic, Normocephalic Neck: Normal Inspection, Supple. No: Carotid Bruit Respiratory/Chest: No Respiratory Distress, Lungs Clear Cardiovascular: Regular Rate, Rhythm, Extra Beats GI/Abdominal: Soft, Non-Tender Extremities: Other (Patient has no peripheral edema, however is left lower extremity around the ankle and calf is tender to palpation) Neurological: Alert, Oriented, No Motor/Sensory Deficits, Other (Patient has a significant upper extremity tremor especially at rest, somewhat decreased with intention) Psychiatric: Normal Affect, Normal Mood Skin Exam: Warm, Dry Course - Vital Signs Last Recorded V/S: Last Vital Signs Temp 98.1 F 01/16/20 18:14 Pulse 86 01/16/20 18:14 Resp 17 01/16/20 18:14 BP 160/104 H 01/16/20 18:14 Pulse Ox 97 01/16/20 18:14 - Orders/Labs/Meds Orders: Active Orders 24 hr Category Date Time Status Chest 1V Frontal [CR] Stat Exams 01/16/20 18:55 Taken Labs: Laboratory Tests 01/16/20 01/16/20 01/16/20 Range/Units 19:10 19:10 19:12 WBC 8.3 (4.5-11.0) K/uL RBC 4.73 (4.30-5.90) M/uL Hgb 14.8 (12.0-15.0) g/dL Hct 44.2 (40.0-54.0) % MCV 93 (80-98) fL MCH 31 (27-31) pg MCHC 34 (32-36) % Plt Count 169 (150-400) K/uL Neut % (Auto) 71 H (36-66) % Lymph % (Auto) 17 L (24-44) % [place] % (Auto) 10 H (2-6) % Eos % (Auto) 1 L (2-4) % Baso % (Auto) 1 (0-1) % Puncture Site Rt radial ABG pH 7.428 (7.350-7.450) ABG pCO2 26.7 L (35.0-42.0) mmHg ABG pO2 85.2 (75.0-100.0) mmHg ABG HCO3 17.3 L (22.0-26.0) mmol/L ABG Total CO2 14.9 L (23.0-27.0) mmol/L ABG O2 Saturation 96.9 (95.0-98.0) % ABG O2 Content 20.1 (15.0-23.0) %vol ABG Base Excess -5.0 mm/L ABG Hemoglobin 15.1 (13.5-18.0) g/dL ABG Oxyhemoglobin 95.0 % ABG Carboxyhemoglobin 1.1 (0.0-1.6) % ABG Methemoglobin 0.9 % Dagoberto Test Pass O2 Delivery Device Room air Sodium 142 (140-148) mmol/L Potassium 4.2 (3.6-5.2) mmol/L Chloride 105 (100-108) mmol/L Carbon Dioxide 23 (21-32) mmol/L Anion Gap 14.3 H (5.0-14.0) mmol/L BUN 10 (7-18) mg/dL Creatinine 1.1 (0.8-1.3) mg/dL Est Cr Clr Drug Dosing 54.45 mL/min Estimated GFR (MDRD) > 60 (>60) Glucose 277 H (74-106) mg/dL Calcium 8.6 (8.5-10.1) mg/dL Total Bilirubin 0.7 (0.2-1.0) mg/dL AST 19 (15-37) U/L ALT 35 (12-78) U/L Alkaline Phosphatase 123 H D (46-116) U/L Creatine Kinase 56 (39-308) U/L Total Protein 6.5 (6.4-8.2) g/dL Albumin 3.1 L (3.4-5.0) g/dL Globulin 3.4 (2.3-3.5) g/dL Albumin/Globulin Ratio 0.9 L (1.2-2.2) TSH, Ultra Sensitive 1.152 (0.358-3.740) uIU/mL Urine Color (YELLOW) Urine Appearance (CLEAR) Urine pH (5.0-8.0) Ur Specific [place] (1.008-1.030) Urine Protein (NEGATIVE) mg/dL Urine Glucose (UA) (NEGATIVE) mg/dL Urine Ketones (NEGATIVE) mg/dL Urine Occult Blood (NEGATIVE) Urine Nitrite (NEGATIVE) Urine Bilirubin (NEGATIVE) Urine Urobilinogen (0.2-1.0) EU/dL Ur Leukocyte Esterase (NEGATIVE) Urine RBC (0-5) Urine WBC (0-5) Ur Epithelial Cells Amorphous Sediment Urine Bacteria Urine Mucus Urine Other 01/16/20 Range/Units 20:00 WBC (4.5-11.0) K/uL RBC (4.30-5.90) M/uL Hgb (12.0-15.0) g/dL Hct (40.0-54.0) % MCV (80-98) fL MCH (27-31) pg MCHC (32-36) % Plt Count (150-400) K/uL Neut % (Auto) (36-66) % Lymph % (Auto) (24-44) % [place] % (Auto) (2-6) % Eos % (Auto) (2-4) % Baso % (Auto) (0-1) % Puncture Site ABG pH (7.350-7.450) ABG pCO2 (35.0-42.0) mmHg ABG pO2 (75.0-100.0) mmHg ABG HCO3 (22.0-26.0) mmol/L ABG Total CO2 (23.0-27.0) mmol/L ABG O2 Saturation (95.0-98.0) % ABG O2 Content (15.0-23.0) %vol ABG Base Excess mm/L ABG Hemoglobin (13.5-18.0) g/dL ABG Oxyhemoglobin % ABG Carboxyhemoglobin (0.0-1.6) % ABG Methemoglobin % Dagoberto Test O2 Delivery Device Sodium (140-148) mmol/L Potassium (3.6-5.2) mmol/L Chloride (100-108) mmol/L Carbon Dioxide (21-32) mmol/L Anion Gap (5.0-14.0) mmol/L BUN (7-18) mg/dL Creatinine (0.8-1.3) mg/dL Est Cr Clr Drug Dosing mL/min Estimated GFR (MDRD) (>60) Glucose (74-106) mg/dL Calcium (8.5-10.1) mg/dL Total Bilirubin (0.2-1.0) mg/dL AST (15-37) U/L ALT (12-78) U/L Alkaline Phosphatase (46-116) U/L Creatine Kinase (39-308) U/L Total Protein (6.4-8.2) g/dL Albumin (3.4-5.0) g/dL Globulin (2.3-3.5) g/dL Albumin/Globulin Ratio (1.2-2.2) TSH, Ultra Sensitive (0.358-3.740) uIU/mL Urine Color Yellow (YELLOW) Urine Appearance Cloudy A (CLEAR) Urine pH 5.5 (5.0-8.0) Ur Specific [place] >= 1.030 (1.008-1.030) Urine Protein 100 H (NEGATIVE) mg/dL Urine Glucose (UA) 500 H (NEGATIVE) mg/dL Urine Ketones 80 H (NEGATIVE) mg/dL Urine Occult Blood Trace-lysed H (NEGATIVE) Urine Nitrite Negative (NEGATIVE) Urine Bilirubin Small H (NEGATIVE) Urine Urobilinogen 0.2 (0.2-1.0) EU/dL Ur Leukocyte Esterase Negative (NEGATIVE) Urine RBC 5-10 H (0-5) Urine WBC 0-5 (0-5) Ur Epithelial Cells Few Amorphous Sediment Few Urine Bacteria Moderate Urine Mucus Rare Urine Other - Re-Assessments/Exams Free Text/Narrative Re-Assessment/Exam: 01/16/20 19:15 Reviewed his records, he has not had any lab here in 3 years. ABGs were done 3 years ago and were fairly poor, I do believe he was having some congestive heart failure at that time. His O2 saturation is 98% on room air and respirations are normal but ABGs will be repeated this visit to check for chronic CO2 retention or chronic hypoxia. CBC, CMP, TSH and UA were also obtained. A 1 view chest x-ray was ordered. These may be lingering symptoms from methadone withdrawal. 01/16/20 20:12 Chest x-ray returned without any infiltrate or effusions, no evidence of congestive failure. ABGs actually showed moderate hyperventilation with decreased CO2 and normal O2, decreased HCO3. CBC is normal, electrolytes are normal other than elevated glucose. It has to be considered that this patient may be developing diabetes due to chronic steroid therapy, UA is still pending. TSH is normal. 01/16/20 20:15 There is some ketones in his urine and glucose. Patient was encouraged to stay hydrated, and follow-up with his primary provider to discuss the possibility of early diabetes after all symptoms of methadone withdrawal are gone which may take up to another week. Return anytime before that if worsening or concerns. Departure - Departure Time of Disposition: 20:31 Disposition: Home, Self-Care 01 Clinical Impression: Methadone withdrawal, Weakness generalized, Hyperglycemia Chronic back pain Qualifiers: Back pain location: low back pain Back pain laterality: bilateral Sciatica presence: without sciatica Qualified Code(s): M54.5 - Low back pain - Discharge Information Instructions: Opioid Withdrawal Referrals: Lico Navarro MD [Primary Care Provider] - Forms: ED Department Discharge Care Plan Goals: Continue your medications other than methadone and try to stay hydrated. Return anytime if worsening or concerns, and call Dr. Navarro to see if you can follow-up in the next 1 to 2 weeks to repeat your glucose test and discuss any medication changes that can be recommended. Sepsis Event Note - Evaluation Sepsis Screening Result: No Definite Risk - Focused Exam Vital Signs: Vital Signs Temp Pulse Resp BP Pulse Ox 01/16/20 18:14 98.1 F 86 17 160/104 H 97 01/16/20 18:13 98.1 F 86 17 161/104 H 97 Date Exam was Performed: 01/16/20 Time Exam was Performed: 22:28 - My Orders Last 24 Hours: My Active Orders 01/16/20 18:55 Chest 1V Frontal [CR] Stat - Assessment/Plan Last 24 Hours: My Active Orders 01/16/20 18:55 Chest 1V Frontal [CR] Stat
--- NOTE | 2020-01-17 11:47 | CR ---
CHEST: Portable dated 01/16/2020 at 7:28 PM CLINICAL HISTORY:Weakness and dyspnea COMPARISON:2017 FINDINGS: The heart is mildly enlarged. Pulmonary vascularity is normal. Patient has a permanent cardiac pacer. There are atherosclerotic changes in the aorta. No infiltrate or effusion identified. Impression: Mild cardiomegaly No acute cardiopulmonary process
== END 2020-01-16 20:30 | disposition home or self-care (01) ==
LOC: JP.ED 18:09
DX: M54.5 Low back pain (principal); F11.23 Opioid dependence with withdrawal; R53.1 Weakness; E66.9 Obesity, unspecified; Z68.36 Body mass index [BMI] 36.0-36.9, adult; E78.00 Pure hypercholesterolemia, unspecified; I10 Essential (primary) hypertension; I48.91 Unspecified atrial fibrillation; R73.9 Hyperglycemia, unspecified; F17.210 Nicotine dependence, cigarettes, uncomplicated; Z79.82 Long term (current) use of aspirin; Z79.899 Other long term (current) drug therapy; F41.9 Anxiety disorder, unspecified; J44.9 Chronic obstructive pulmonary disease, unspecified; G62.9 Polyneuropathy, unspecified; Z91.048 Other nonmedicinal substance allergy status; Z88.8 Allergy status to other drugs, medicaments and biological substances; Z88.5 Allergy status to narcotic agent
CPT/HCPCS: 36415; 36600; 71045; 71045-26; 80053; 81001; 82550; 82803; 84443; 85025; 99283; 99285-25

== ENCOUNTER 2021-03-14 08:04 | Day surgery (SDC) | payer MEDICARE ==
[~2021-03-14 08:04] MED LIST: Bupivacaine 0.5% 50 ML MDV ONE; Lidocaine 1% with EPINEPHrine 1:100,000 50 ML MDV ONE; Midazolam 1 MG/ML 2 ML SDV ONE; Propofol 200 MG/20 ML SDV ONE; fentaNYL 100 MCG/2 ML SDV ONE
[2021-03-14] MEDS ORDERED: Sodium Chloride 0.9% 1,000 ML IV SCH (08:45)
[2021-03-14] MEDS ORDERED: metroNIDAZOLE/Normal Saline 500 MG in Premix Bag 1 BAG IV ONE (09:45)
[2021-03-14] MEDS ORDERED: ceFAZolin 2 GM in Premix Bag 1 BAG IV ONE (10:00)
[2021-03-14] MEDS ORDERED: Ropivacaine 36 ML, dexAMETHasone 8 MG, EPINEPHrine 0.4 MG, Sodium Chloride 0.9% 41.6 ML NERVRT SCH ×4 (10:00)
[2021-03-14] MEDS ORDERED: Acetaminophen/HYDROcodone 325-5 MG Tab PO ONE (12:04)
[2021-03-14 12:16] VITALS: BP 122/84; PULSE 73
--- NOTE | 2021-03-14 12:25 | OR ---
DATE OF PROCEDURE: 03/14/2021 SURGEON: Willie Hatfield MD PROCEDURE: Right inguinal hernia. FINDINGS: Incarcerated non-strangulated right inguinal hernia. COMPLICATIONS: None. LABOR RELATIONS ANALYST: None. ANESTHESIA: MAC. PREOPERATIVE DIAGNOSIS: Inguinal hernia, right. POSTOPERATIVE DIAGNOSIS: Inguinal hernia, right. RISKS: Risks, benefits, alternatives, and limitations including, but not limited to, infection, bleeding, injury to testicular structures resulting in testicular loss, chronic wounds, and chronic pain were all explained to the patient, and they wished to proceed. PROCEDURE IN DETAIL: The patient was placed in supine position. A curvilinear incision was made superior to the pubic symphysis. This was opened with a 15 blade and carried down with electrocautery. The external oblique aponeurosis identified, opened with a 15 blade and subsequently with Metzenbaum scissors. The cord structures were identified and mobilized. The patient was noted to have a large cord lipoma in conjunction with the hernia sac. The hernia sac was densely adhered to the remainder of the cord structures. This indirect inguinal hernia was incarcerated, was able to be reduced cord structure. This was closed with a Mylene, transected, and suture ligated. The cord lipoma was also transected using suture ligation. An extra-large plug and patch system was then inserted and attached using combination of 0 Vicryl and tacking type device. This was secured in the ilioinguinal ligament in conjunction with the muscular structures. Once this was complete, the external oblique aponeurosis closed over this. This was irrigated, closed with 3-0 Vicryl and 4-0 Vicryl in interrupted running fashion. Dermabond was applied. The patient tolerated procedure well. Willie Hatfield MD /[id number]
--- NOTE | 2021-03-14 12:26 | OR ---
DATE OF PROCEDURE: 03/14/2021 SURGEON: Willie Hatfield MD PROCEDURES: 1. Bilateral rectus sheath blocks. 2. Bilateral transversus abdominis plane blocks. COMPLICATIONS: None. TRUCK DISPATCHER: None. RISKS: Risks, benefits, alternatives, and limitations including, but not limited to infection, bleeding, and injury to abdominal structures were explained to the patient who wished to proceed. PROCEDURE IN DETAIL: The patient was placed in supine position. A right transversus plane was readily identified. This was injected using 20% of the solution. The other side was then performed in a same manner, same fashion, same technique in the same sequence. Bilateral rectus sheaths were then identified, injected in the posterior aspect using 20% of the solution respectively. At no time was the needle blindly advanced, nor it passed the peritoneum. The patient tolerated the procedure well. Willie Hatfield MD /[id number]
== END 2021-03-14 12:50 | disposition home or self-care (01) ==
LOC: JP.SDS 08:04
PROVIDERS: ATTEND Surgery
DX: K40.30 Unilateral inguinal hernia, with obstruction, without gangrene, not specified as recurrent (principal); I48.91 Unspecified atrial fibrillation; J44.9 Chronic obstructive pulmonary disease, unspecified; I25.10 Atherosclerotic heart disease of native coronary artery without angina pectoris; E66.01 Morbid (severe) obesity due to excess calories; G47.33 Obstructive sleep apnea (adult) (pediatric); I11.0 Hypertensive heart disease with heart failure; I50.9 Heart failure, unspecified; Z95.0 Presence of cardiac pacemaker; Z79.899 Other long term (current) drug therapy; Z98.890 Other specified postprocedural states; Z79.01 Long term (current) use of anticoagulants; Z79.82 Long term (current) use of aspirin; Z88.8 Allergy status to other drugs, medicaments and biological substances; Z91.040 Latex allergy status; Z91.048 Other nonmedicinal substance allergy status; Z87.891 Personal history of nicotine dependence; Z68.22 Body mass index [BMI] 22.0-22.9, adult
CPT/HCPCS: 49507; A9270; J0171; J0690; J1100; J2250; J2704; J2795; J3010; J3490; J7030

== ENCOUNTER 2024-03-08 07:49 | Day surgery (SDC) | payer OTHER, MEDICARE ==
[2024-03-08] MEDS: Sodium Chloride 0.9% 1,000 ML IV SCH (08:52)
[2024-03-08 08:54] LABS: HEMATOCRIT 36.7 % (38.4-49.7); HEMOGLOBIN 12.3 g/dL (12.9-16.9); MEAN CORPUSCULAR HEMOGLOBIN 32.2 pg (31.6-35.5); MEAN CORPUSCULAR HGB CONC 33.5 g/dL (31.6-35.5); MEAN CORPUSCULAR VOLUME 96.1 fL (81.4-99.0); RED BLOOD CELL COUNT 3.82 M/uL (4.14-5.76); WHITE BLOOD CELL COUNT,WBC 7.9 K/uL (3.2-11.0)
[2024-03-08] MEDS: Albuterol/Ipratropium 3.0-0.5 MG/3 ML Neb Soln NEB ONE (09:03)
[2024-03-08] MEDS ORDERED: fentaNYL 100 MCG/2 ML SDV ONE (09:07)
[2024-03-08] MEDS ORDERED: Propofol 200 MG/20 ML SDV ONE ×2 (09:07→10:05)
[2024-03-08] MEDS ORDERED: Midazolam 1 MG/ML 2 ML SDV ONE (09:08)
[2024-03-08 09:15] LABS: A/G RATIO 0.6 (1.2-2.2); ALANINE AMINOTRANSFERASE,ALT 20 U/L (12-78); ALBUMIN 2.7 g/dL (3.4-5.0); ALKALINE PHOSPHATASE 76 U/L (46-116); ANION GAP 10.3 mmol/L (5.0-14.0); ASPARTATE AMNIOTRANSFERASE,AST 18 U/L (15-37); BILIRUBIN TOTAL 0.7 mg/dL (0.2-1.0); BLOOD UREA NITROGEN,BUN 25 mg/dL (7-18); CARBON DIOXIDE,CO2 27 mmol/L (21-32); CHLORIDE,CL 104 mmol/L (100-108); CREATININE 1.2 mg/dL (0.8-1.3); EST CRCL DRUG DOSING (CG) 48.16 mL/min; ESTIMATED GFR 60 mL/min (>60); GLUCOSE RANDOM 110 mg/dL (74-106); POTASSIUM,K 4.1 mmol/L (3.6-5.2); PROTEIN TOTAL,TP 6.9 g/dL (6.4-8.2); SODIUM,NA 141 mmol/L (140-148)
[2024-03-08] MEDS: ceFAZolin 2 GM in Premix Bag 1 BAG IV ONE (09:30)
[2024-03-08] MEDS: metroNIDAZOLE/Normal Saline 500 MG in Premix Bag 1 BAG IV ONE (09:45)
[2024-03-08] MEDS: Bupivacaine 0.5% 50 ML MDV ONE (10:03)
[2024-03-08] MEDS: Lidocaine 1% with EPINEPHrine 1:100,000 50 ML MDV ONE (10:04)
[2024-03-08] MEDS ORDERED: Sodium Chloride 0.9% 500 ML ONE (10:04)
[2024-03-08] MEDS: Ropivacaine 38 ML, dexAMETHasone 8 MG, EPINEPHrine 0.4 MG, Sodium Chloride 0.9% 39.6 ML NERVRT SCH (10:11)
[2024-03-08] MEDS: Acetaminophen/HYDROcodone 325-5 MG Tab PO ONE (11:37)
[2024-03-08 13:27] VITALS: BP 137/74; PULSE 72
== END 2024-03-08 14:09 | disposition home or self-care (01) ==
LOC: JP.SDS 07:49
PROVIDERS: ATTEND Surgery
DX: K40.30 Unilateral inguinal hernia, with obstruction, without gangrene, not specified as recurrent (principal); I11.0 Hypertensive heart disease with heart failure; I50.9 Heart failure, unspecified; I25.10 Atherosclerotic heart disease of native coronary artery without angina pectoris
CPT/HCPCS: 36415; 49507; 80053; 85027; 94640; A9270; C1713; C1781; J0171; J0665; J0690; J1100; J1836; J2250; J2704; J2795; J3010; J3490; J7030; J7040; J7620

== ENCOUNTER 2024-10-23 04:26 | Emergency (ER) | payer MEDICARE, OTHER ==
[2024-10-23 04:43] VITALS: BP 139/86; PULSE 89
[2024-10-23 05:53] LABS: APPEARANCE,URINE CLOUDY (CLEAR); COLOR,URINE BROWN (YELLOW)
[2024-10-23 05:54] LABS: GLUCOSE,URINE NORMAL (NEGATIVE); KETONES,URINE NEGATIVE (NEGATIVE); PROTEIN,URINE >=300 mg/dL (NEGATIVE)
[2024-10-23 05:55] LABS: BILIRUBIN,URINE NEGATIVE (NEGATIVE); LEUKOCYTE ESTERASE,URINE SMALL (NEGATIVE); NITRITE,URINE NEGATIVE (NEGATIVE); OCCULT BLOOD,URINE LARGE (NEGATIVE); UROBILINOGEN,URINE 0.2 EU/dL (0.2-1.0)
[2024-10-23 06:06] LABS: AMORPHOUS SEDIMENT,URINE FEW; BACTERIA,URINE MANY; EPITHELIAL CELLS,URINE RARE; MUCUS,URINE NOT SEEN; RBC,URINE >100 (0-5)
[2024-10-23] MEDS ORDERED: Sodium Chloride 0.9% 10 ML Syringe FLUSH PRN (06:28)
[2024-10-23 06:47] LABS: BASOPHILS ABSOLUTE AUTO 0.04 K/uL (0.00-0.10); BASOPHILS PERCENT AUTO 0.6 % (0.1-1.3); EOSINOPHILS PERCENT AUTO 4.3 % (0.0-5.4); HEMATOCRIT 41.1 % (38.4-49.7); HEMOGLOBIN 14.2 g/dL (12.9-16.9); IMMATURE GRAN PERCENT AUTO 0.3 % (0.0-0.7); LYMPHOCYTES PERCENT AUTO 23.2 % (11.4-47.7); MEAN CORPUSCULAR HEMOGLOBIN 34.1 pg (31.6-35.5); MEAN CORPUSCULAR HGB CONC 34.5 g/dL (31.6-35.5); MEAN CORPUSCULAR VOLUME 98.8 fL (81.4-99.0); MONOCYTES ABSOLUTE AUTO 0.58 K/uL (0.20-0.90); MONOCYTES PERCENT AUTO 8.4 % (3.3-12.6); NEUTROPHILS ABSOLUTE AUTO 4.37 K/uL (1.0-7.6); NEUTROPHILS PERCENT AUTO 63.2 % (40.0-78.1); PLATELET COUNT,PLT 135 K/uL (130-375); RED BLOOD CELL COUNT 4.16 M/uL (4.14-5.76); WHITE BLOOD CELL COUNT,WBC 6.9 K/uL (3.2-11.0)
[2024-10-23 06:48] LABS: IMMATURE GRAN ABSOLUTE AUTO 0.02 K/uL (0.00-0.23)
[2024-10-23 07:08] LABS: A/G RATIO 1.2 (1.2-2.2); ALANINE AMINOTRANSFERASE,ALT 35 U/L (12-78); ALBUMIN 3.8 g/dL (3.4-5.0); ALKALINE PHOSPHATASE 69 U/L (46-116); ANION GAP 7.4 mmol/L (5.0-14.0); ASPARTATE AMNIOTRANSFERASE,AST 26 U/L (15-37); BILIRUBIN TOTAL 0.6 mg/dL (0.2-1.0); BLOOD UREA NITROGEN,BUN 28 mg/dL (7-18); CALCIUM 9.2 mg/dL (8.5-10.1); CARBON DIOXIDE,CO2 31 mmol/L (21-32); CHLORIDE,CL 106 mmol/L (100-108); CREATININE 1.3 mg/dL (0.8-1.3); EST CRCL DRUG DOSING (CG) 45.05 mL/min; ESTIMATED GFR 54 mL/min (>60); GLUCOSE RANDOM 106 mg/dL (74-106); POTASSIUM,K 4.4 mmol/L (3.6-5.2); SODIUM,NA 144 mmol/L (140-148)
[2024-10-23 07:15] LABS: INR 1.2; PROTHROMBIN TIME 12.5 sec (9.2-10.6); PTT,PARTIAL THROMBOPLSTIN TIME 31.3 sec (21.8-27.3)
[2024-10-23] MEDS: Iopamidol 612 MG/ML 100 ML Bottle IV PRN (07:16)
[2024-10-23] MEDS: Sodium Chloride 0.9% 10 ML Syringe FLUSH PRN (07:16)
[2024-10-23] MEDS: Sodium Chloride 0.9% 80 ML IV SCH (07:16)
[2024-10-23] MEDS: Sodium Chloride 0.9% 1,000 ML IV STA (07:40)
[2024-10-23] MEDS: Lidocaine 2% Jelly 10 ML Urojet MUCMEM ONE (09:25)
== END 2024-10-23 11:00 | disposition home or self-care (01) ==
LOC: JP.ED 04:26
DX: N20.0 Calculus of kidney (principal); I48.91 Unspecified atrial fibrillation; I25.10 Atherosclerotic heart disease of native coronary artery without angina pectoris; E78.00 Pure hypercholesterolemia, unspecified; I10 Essential (primary) hypertension; Z91.048 Other nonmedicinal substance allergy status; Z79.01 Long term (current) use of anticoagulants; Z91.040 Latex allergy status; Z88.8 Allergy status to other drugs, medicaments and biological substances; Z79.82 Long term (current) use of aspirin; Z79.899 Other long term (current) drug therapy
CPT/HCPCS: 36415; 51702; 74178; 80053; 81001; 85025; 85610; 85730; 99284; J7030; Q9967